=== PATIENT | female | born 1945 | race African-American/Black ===

== ENCOUNTER 2016-07-12 19:37 | Inpatient (IN) | payer MEDICARE, OTHER ==
[~2016-07-12] VITALS: Ht 162.6 cm; Wt 54.3 kg
[~2016-07-12 19:37] MED LIST: ASCO-75 PO; ASPI-231 PO; ATOR40TA52 PO; CARV25TA55 PO; CLO01T PO; DIGO0.1262 PO; DOCU-94 PO; FAMO-12 PO; FERR325T PO; FURO40TA4 PO; INSLISPI; LACT10SO PO; LISI-275 PO; MEGE40SU PO; MULT-424 PO; NITR0.4S29 SL; NOR5T PO; POTA20TA53 PO; [UNRECOGNIZED DRUG - CODE] PO
[2016-07-12 21:07] LABS: Basophils # (auto) 0 uL; Basophils % (auto) 0.5 % (0.0-2.0); DEFINITIVE VIEW TRANSMISSION; Eosinophils # (auto) 0.2 uL; Eosinophils % (auto) 3.8 % (0.0-7.0); Hematocrit 34.8 % (36.0-46.0); Hemoglobin 10.7 g/dL (12.2-16.2); Lymphocytes # (auto) 1.4 uL; Lymphocytes % (auto) 25.9 % (10.0-50.0); Mean Corpuscular Hemoglobin 25.1 pg (28.0-32.0); Mean Corpuscular Hgb Conc. 30.8 g/dL (32.0-36.0); Mean Corpuscular Volume 81.3 fL (80.0-100.0); Mean Platelet Volume 8.1 fL (7.4-10.4); Monocytes # (auto) 0.6 uL; Monocytes % (auto) 11.9 % (0.0-12.0); Neutrophils % (auto) 57.9 % (37.0-80.0); Platelet Count (auto) 235 10^3/uL (140-450); Red Cell Distribution Width 14.1 % (11.6-16.0); White Blood Cell 5.3 10^3/uL (4.4-10.8)
[2016-07-12 21:25] LABS: Albumin 3.8 g/dL (3.4-5.0); BUN/Creatinine Ratio 10.7; Bilirubin, Total 0.5 mg/dL (0.2-1.0); Calcium 9.1 mg/dL (8.5-10.1); Total Protein 8.2 g/dL (6.4-8.2)
[2016-07-12 22:51] LABS: B-Type Natriuretic Peptide 310.98 pg/mL (0-100); Temperature: 22.9 C (20.0-25.0)
[2016-07-13] MEDS ORDERED: IOHEXOL 350 MG/ML 100ML IJ ONE (00:20)
[2016-07-13] MEDS ORDERED: DEXTROSE (50%) 50ML SYRG IV PRN (01:15)
[2016-07-13] MEDS ORDERED: ONDANSETRON HCL 4 MG/2 ML VIAL IV PRN (01:15)
[2016-07-13] MEDS ORDERED: cloNIDine HCL 0.1 MG TAB PO PRN (01:15)
[2016-07-13] MEDS ORDERED: NITROGLYCERIN 0.4 MG SL TAB SL PRN (01:15)
[2016-07-13] MEDS ORDERED: MORPHINE SULF INJ 2 MG/ML SYRINGE 1ML IV PRN (01:15)
[2016-07-13 02:29] LABS: Partial Thromboplastin Time 42.2 sec (22.64-33.71)
[2016-07-13 02:34] LABS: Prothrombin Time 50.5 sec (9.37-12.3)
[2016-07-13 02:38] LABS: INR 4.68 (0.9-1.15)
[2016-07-13] MEDS: ACETAMINOPHEN 325 MG TAB PO PRN (03:06)
[2016-07-13 03:18] VITALS: BP 138/72
[2016-07-13] MEDS: ACCU-CHEK COMFORT CURVE STRIP VI SCH ×3 (05:46→17:18)
[2016-07-13] MEDS: InsuLIN REG 1unit/0.01ml Soln (100units/ml) SC SCH ×3 (05:46→17:27)
[2016-07-13 05:56] VITALS: BP 130/69
[2016-07-13] MEDS: FERROUS SULFATE 325 MG TAB PO SCH ×2 (08:07→17:17)
[2016-07-13 09:00] VITALS: BP 145/69
[2016-07-13] MEDS ORDERED: ASPirin 81 mg TAB PO SCH (10:00)
[2016-07-13] MEDS: POTASSIUM CHL 20 Meq TABLET PO SCH (10:22)
[2016-07-13] MEDS: FAMOTIDINE 20 MG TAB PO SCH ×2 (10:23→22:04)
[2016-07-13] MEDS: DIGOXIN 0.125 MG TAB PO SCH (10:23)
[2016-07-13] MEDS: FUROSEMIDE 40 MG TAB PO SCH (10:24)
[2016-07-13] MEDS: ASCORBIC ACID 500 MG TAB PO SCH (10:25)
[2016-07-13] MEDS: CARVEDILOL 12.5 MG TAB PO SCH ×2 (10:25→22:05)
[2016-07-13] MEDS: LISINOPRIL 5 MG TAB PO SCH (10:25)
[2016-07-13 13:00] VITALS: BP 131/63
[2016-07-13 17:00] VITALS: BP 123/60
[2016-07-13 22:00] VITALS: BP 114/65
[2016-07-14] MEDS: ACCU-CHEK COMFORT CURVE STRIP VI SCH ×4 (00:36→17:45)
[2016-07-14] MEDS: InsuLIN REG 1unit/0.01ml Soln (100units/ml) SC SCH ×4 (00:37→17:46)
[2016-07-14] MEDS: ACETAMINOPHEN 325 MG TAB PO PRN ×2 (04:27→23:49)
[2016-07-14 05:00] VITALS: BP 124/73
[2016-07-14 06:57] LABS: Partial Thromboplastin Time 38.7 sec (22.64-33.71)
[2016-07-14 07:09] LABS: INR 2.95 (0.9-1.15); Prothrombin Time 31.9 sec (9.37-12.3)
[2016-07-14 08:00] VITALS: BP 117/62
[2016-07-14] MEDS: FERROUS SULFATE 325 MG TAB PO SCH ×2 (08:18→17:45)
[2016-07-14 09:00] VITALS: BP 130/71
[2016-07-14] MEDS: FUROSEMIDE 40 MG TAB PO SCH (10:31)
[2016-07-14] MEDS: ASCORBIC ACID 500 MG TAB PO SCH (10:32)
[2016-07-14] MEDS: FAMOTIDINE 20 MG TAB PO SCH ×2 (10:32→22:23)
[2016-07-14] MEDS: CARVEDILOL 12.5 MG TAB PO SCH ×2 (10:33→22:23)
[2016-07-14] MEDS: POTASSIUM CHL 20 Meq TABLET PO SCH (10:34)
[2016-07-14] MEDS: DIGOXIN 0.125 MG TAB PO SCH (10:35)
[2016-07-14] MEDS: LISINOPRIL 5 MG TAB PO SCH (10:35)
[2016-07-14 13:00] VITALS: BP 117/59
[2016-07-14 17:00] VITALS: BP 127/67
[2016-07-14] MEDS ORDERED: WARFARIN SODIUM 1 MG TAB PO ONE (17:00)
[2016-07-14 22:00] VITALS: BP 126/60
[2016-07-15 05:52] VITALS: BP 111/59
[2016-07-15] MEDS: ACCU-CHEK COMFORT CURVE STRIP VI SCH ×4 (05:59→17:46)
[2016-07-15] MEDS: InsuLIN REG 1unit/0.01ml Soln (100units/ml) SC SCH ×4 (05:59→17:46)
[2016-07-15 06:07] LABS: Partial Thromboplastin Time 34.3 sec (22.64-33.71)
[2016-07-15 06:10] LABS: BUN/Creatinine Ratio 16.3; Calcium 8.9 mg/dL (8.5-10.1); Potassium 3.7 mmol/L (3.5-5.1)
[2016-07-15 06:11] LABS: INR 1.93 (0.9-1.15); Prothrombin Time 20.8 sec (9.37-12.3)
[2016-07-15 08:00] VITALS: BP 110/59
[2016-07-15 09:00] VITALS: BP 149/69
[2016-07-15] MEDS: ASCORBIC ACID 500 MG TAB PO SCH (10:04)
[2016-07-15] MEDS: POTASSIUM CHL 20 Meq TABLET PO SCH (10:04)
[2016-07-15] MEDS: FERROUS SULFATE 325 MG TAB PO SCH ×2 (10:04→17:45)
[2016-07-15] MEDS: FAMOTIDINE 20 MG TAB PO SCH ×2 (10:04→22:19)
[2016-07-15] MEDS: LISINOPRIL 5 MG TAB PO SCH (10:06)
[2016-07-15] MEDS: AMIODARONE HCL 200 MG TAB PO SCH ×2 (10:07→22:17)
[2016-07-15] MEDS: CARVEDILOL 12.5 MG TAB PO SCH ×2 (10:07→22:19)
[2016-07-15] MEDS: FUROSEMIDE 40 MG TAB PO SCH (10:07)
[2016-07-15 13:00] VITALS: BP 120/57
[2016-07-15 17:00] VITALS: BP 117/65
[2016-07-15] MEDS ORDERED: WARFARIN SODIUM 2.5 MG TAB PO ONE (17:00)
[2016-07-15 21:03] VITALS: BP 140/69
[2016-07-15] MEDS: HYDROcodone-ACET 5/325MG TAB PO PRN (22:30)
[2016-07-16 05:04] VITALS: BP 113/61
[2016-07-16] MEDS: InsuLIN REG 1unit/0.01ml Soln (100units/ml) SC SCH ×4 (06:00→17:45)
[2016-07-16] MEDS: ACCU-CHEK COMFORT CURVE STRIP VI SCH ×4 (06:15→17:29)
[2016-07-16 07:31] LABS: Partial Thromboplastin Time 29.6 sec (22.64-33.71)
[2016-07-16 07:34] LABS: INR 1.34 (0.9-1.15); Prothrombin Time 14.5 sec (9.37-12.3)
[2016-07-16] MEDS ORDERED: ADENOSINE 49 MG in GIVE UN-DILUTED 0 ML IV STA (07:59)
[2016-07-16 08:00] VITALS: BP 124/70
[2016-07-16] MEDS: FERROUS SULFATE 325 MG TAB PO SCH ×2 (08:00→17:45)
[2016-07-16 08:01] LABS: Albumin 3.2 g/dL (3.4-5.0); Bilirubin, Total 0.8 mg/dL (0.2-1.0); Calcium 8.8 mg/dL (8.5-10.1); Potassium 3.7 mmol/L (3.5-5.1); Total Protein 7.2 g/dL (6.4-8.2)
[2016-07-16 09:00] VITALS: BP 124/70
[2016-07-16] MEDS ORDERED: AMINOPHYLLINE 250 MG/10 ML VL IV ONE (09:37)
[2016-07-16] MEDS: POTASSIUM CHL 20 Meq TABLET PO SCH (11:20)
[2016-07-16] MEDS: AMIODARONE HCL 200 MG TAB PO SCH ×2 (11:20→22:18)
[2016-07-16] MEDS: FUROSEMIDE 40 MG TAB PO SCH (11:21)
[2016-07-16] MEDS: DIGOXIN 0.125 MG TAB PO SCH (11:21)
[2016-07-16] MEDS: FAMOTIDINE 20 MG TAB PO SCH ×2 (11:22→22:19)
[2016-07-16] MEDS: CARVEDILOL 12.5 MG TAB PO SCH ×2 (11:22→22:00)
[2016-07-16] MEDS: ASCORBIC ACID 500 MG TAB PO SCH (11:22)
[2016-07-16] MEDS: LISINOPRIL 5 MG TAB PO SCH (11:23)
[2016-07-16 13:00] VITALS: BP 144/71
[2016-07-16 17:00] VITALS: BP 105/53
[2016-07-16] MEDS ORDERED: WARFARIN SODIUM 5 MG TAB PO ONE (17:00)
[2016-07-16 22:00] VITALS: BP 97/53
[2016-07-16 22:06] LABS: Basophils # (auto) 0 uL; Basophils % (auto) 0.3 % (0.0-2.0); DEFINITIVE VIEW TRANSMISSION; Eosinophils # (auto) 0.2 uL; Eosinophils % (auto) 2.8 % (0.0-7.0); Hematocrit 35.4 % (36.0-46.0); Hemoglobin 10.9 g/dL (12.2-16.2); Lymphocytes # (auto) 1.4 uL; Lymphocytes % (auto) 16.9 % (10.0-50.0); Mean Corpuscular Hemoglobin 25.1 pg (28.0-32.0); Mean Corpuscular Hgb Conc. 30.7 g/dL (32.0-36.0); Mean Corpuscular Volume 81.7 fL (80.0-100.0); Monocytes # (auto) 0.9 uL; Monocytes % (auto) 10.8 % (0.0-12.0); Neutrophils # (auto) 5.6 uL; Neutrophils % (auto) 69.2 % (37.0-80.0); Platelet Count (auto) 251 10^3/uL (140-450); Red Cell Distribution Width 14.3 % (11.6-16.0); White Blood Cell 8.1 10^3/uL (4.4-10.8)
[2016-07-16] MEDS ORDERED: HEPARIN DRIP/D5W 100UNITS/ML 250 ML IV SCH (22:15)
[2016-07-17 05:49] VITALS: BP 111/64
[2016-07-17] MEDS: InsuLIN REG 1unit/0.01ml Soln (100units/ml) SC SCH ×4 (06:00→17:56)
[2016-07-17] MEDS: ACCU-CHEK COMFORT CURVE STRIP VI SCH ×4 (06:17→17:56)
[2016-07-17 07:30] LABS: Partial Thromboplastin Time 42.2 sec (22.64-33.71)
[2016-07-17 07:40] LABS: INR 1.21 (0.9-1.15); Prothrombin Time 13.1 sec (9.37-12.3)
[2016-07-17] MEDS: FERROUS SULFATE 325 MG TAB PO SCH ×2 (08:00→18:00)
[2016-07-17] MEDS ORDERED: LIDOCAINE 2%HCL (LOCAL ANESTH.) INJ 20ML MDV ONE (08:36)
[2016-07-17] MEDS ORDERED: IOHEXOL 350 MG/ML 100ML IJ ONE (08:36)
[2016-07-17 08:44] VITALS: BP 120/71
[2016-07-17] MEDS ORDERED: MIDAZOLAM HCL 1MG/1ML-2 ML VIAL ONE (09:50)
[2016-07-17] MEDS ORDERED: fentaNYL CITRATE 100 MCG/2 ML VL ONE (09:50)
[2016-07-17] MEDS ORDERED: ANGIOMAX 250 MG VIAL IV ONE (09:51)
[2016-07-17] MEDS ORDERED: SODIUM CHL 0.9% 0 ML ONE (09:51)
[2016-07-17] MEDS: CARVEDILOL 12.5 MG TAB PO SCH ×2 (10:00→22:27)
[2016-07-17] MEDS: LISINOPRIL 5 MG TAB PO SCH (10:00)
[2016-07-17] MEDS: ASCORBIC ACID 500 MG TAB PO SCH (10:00)
[2016-07-17] MEDS: FAMOTIDINE 20 MG TAB PO SCH ×2 (10:00→22:27)
[2016-07-17] MEDS: FUROSEMIDE 40 MG TAB PO SCH (10:00)
[2016-07-17] MEDS: AMIODARONE HCL 200 MG TAB PO SCH ×2 (10:00→22:28)
[2016-07-17] MEDS: POTASSIUM CHL 20 Meq TABLET PO SCH (10:00)
[2016-07-17] MEDS ORDERED: HEPARIN DRIP/D5W 100UNITS/ML 250 ML IV SCH (12:02)
[2016-07-17] MEDS: HEPARIN DRIP/D5W 100UNITS/ML 250 ML IV SCH ×3 (12:50→18:41)
[2016-07-17 13:00] VITALS: BP 136/70
[2016-07-17 13:05] LABS: Partial Thromboplastin Time 28.8 sec (22.64-33.71)
[2016-07-17 13:11] LABS: INR 1.16 (0.9-1.15); Prothrombin Time 12.5 sec (9.37-12.3)
[2016-07-17 17:00] VITALS: BP 123/70
[2016-07-17] MEDS ORDERED: WARFARIN SODIUM 2.5 MG TAB PO ONE (17:00)
[2016-07-17 18:33] LABS: INR 1.13 (0.9-1.15); Partial Thromboplastin Time 41.1 sec (22.64-33.71); Prothrombin Time 12.2 sec (9.37-12.3)
[2016-07-17 21:00] VITALS: BP 111/64
[2016-07-17] MEDS: HYDROcodone-ACET 5/325MG TAB PO PRN (22:37)
[2016-07-18] MEDS: ACCU-CHEK COMFORT CURVE STRIP VI SCH ×4 (00:27→17:31)
[2016-07-18 03:52] LABS: INR 1.15 (0.9-1.15); Partial Thromboplastin Time 61.3 sec (22.64-33.71)
[2016-07-18 04:50] LABS: Prothrombin Time 12.4 sec (9.37-12.3)
[2016-07-18 05:35] VITALS: BP 107/54
[2016-07-18] MEDS: InsuLIN REG 1unit/0.01ml Soln (100units/ml) SC SCH ×4 (06:00→17:31)
[2016-07-18] MEDS ORDERED: HEPARIN DRIP/D5W 100UNITS/ML 250 ML IV SCH ×3 (06:30→13:15)
[2016-07-18 06:44] LABS: Basophils # (auto) 0 uL; Basophils % (auto) 0.3 % (0.0-2.0); DEFINITIVE VIEW TRANSMISSION; Eosinophils # (auto) 0.2 uL; Eosinophils % (auto) 2.8 % (0.0-7.0); Hemoglobin 10.1 g/dL (12.2-16.2); Lymphocytes # (auto) 1.5 uL; Lymphocytes % (auto) 23.2 % (10.0-50.0); Mean Corpuscular Hemoglobin 25.6 pg (28.0-32.0); Mean Corpuscular Hgb Conc. 31.4 g/dL (32.0-36.0); Mean Corpuscular Volume 81.5 fL (80.0-100.0); Mean Platelet Volume 8.8 fL (7.4-10.4); Monocytes # (auto) 0.6 uL; Monocytes % (auto) 9.9 % (0.0-12.0); Neutrophils # (auto) 4.2 uL; Neutrophils % (auto) 63.8 % (37.0-80.0); Platelet Count (auto) 191 10^3/uL (140-450); Red Cell Distribution Width 14.3 % (11.6-16.0); White Blood Cell 6.6 10^3/uL (4.4-10.8)
[2016-07-18 06:54] LABS: INR 1.14 (0.9-1.15); Prothrombin Time 12.3 sec (9.37-12.3)
[2016-07-18 07:01] LABS: Partial Thromboplastin Time 75.8 sec (22.64-33.71)
[2016-07-18] MEDS: ASCORBIC ACID 500 MG TAB PO SCH (08:58)
[2016-07-18] MEDS: FERROUS SULFATE 325 MG TAB PO SCH ×2 (08:58→17:31)
[2016-07-18] MEDS: AMIODARONE HCL 200 MG TAB PO SCH ×2 (08:58→22:22)
[2016-07-18] MEDS: FAMOTIDINE 20 MG TAB PO SCH ×2 (08:58→22:22)
[2016-07-18] MEDS: FUROSEMIDE 40 MG TAB PO SCH (08:59)
[2016-07-18] MEDS: CARVEDILOL 12.5 MG TAB PO SCH ×2 (08:59→22:22)
[2016-07-18] MEDS: DIGOXIN 0.125 MG TAB PO SCH (08:59)
[2016-07-18] MEDS: POTASSIUM CHL 20 Meq TABLET PO SCH (08:59)
[2016-07-18 09:00] VITALS: BP 101/54
[2016-07-18] MEDS: LISINOPRIL 5 MG TAB PO SCH (09:00)
[2016-07-18] MEDS ORDERED: WARF2TAB49 (09:09)
[2016-07-18] MEDS ORDERED: WARF5TAB71 (09:09)
[2016-07-18 12:23] LABS: INR 1.06 (0.9-1.15); Prothrombin Time 11.5 sec (9.37-12.3)
[2016-07-18 12:52] LABS: Partial Thromboplastin Time 69.3 sec (22.64-33.71)
[2016-07-18 13:00] VITALS: BP 130/69
[2016-07-18 17:00] VITALS: BP 114/60
[2016-07-18] MEDS ORDERED: WARFARIN SODIUM 2.5 MG TAB PO ONE (17:00)
[2016-07-18 20:00] VITALS: BP 125/66
[2016-07-18 22:00] VITALS: BP 125/66
[2016-07-19] VITALS (7 sets, daily range): BP systolic 101–138; BP diastolic 56–72
[2016-07-19] MEDS: InsuLIN REG 1unit/0.01ml Soln (100units/ml) SC SCH ×4 (06:00→18:00)
[2016-07-19] MEDS: ACCU-CHEK COMFORT CURVE STRIP VI SCH ×4 (06:01→18:06)
[2016-07-19 06:26] LABS: Basophils # (auto) 0 uL; Basophils % (auto) 0.4 % (0.0-2.0); DEFINITIVE VIEW TRANSMISSION; Eosinophils # (auto) 0.2 uL; Eosinophils % (auto) 2.7 % (0.0-7.0); Hematocrit 33.4 % (36.0-46.0); Hemoglobin 10.4 g/dL (12.2-16.2); Lymphocytes # (auto) 1.3 uL; Lymphocytes % (auto) 19.6 % (10.0-50.0); Mean Corpuscular Hemoglobin 25.2 pg (28.0-32.0); Mean Corpuscular Hgb Conc. 31.1 g/dL (32.0-36.0); Mean Corpuscular Volume 80.8 fL (80.0-100.0); Mean Platelet Volume 8.3 fL (7.4-10.4); Monocytes # (auto) 0.7 uL; Monocytes % (auto) 11.4 % (0.0-12.0); Neutrophils # (auto) 4.3 uL; Neutrophils % (auto) 65.9 % (37.0-80.0); Platelet Count (auto) 195 10^3/uL (140-450); Red Cell Distribution Width 14.8 % (11.6-16.0); White Blood Cell 6.6 10^3/uL (4.4-10.8)
[2016-07-19 06:43] LABS: INR 1.09 (0.9-1.15); Prothrombin Time 11.8 sec (9.37-12.3)
[2016-07-19 06:51] LABS: Partial Thromboplastin Time 86.3 sec (22.64-33.71)
[2016-07-19] MEDS ORDERED: HEPARIN DRIP/D5W 100UNITS/ML 250 ML IV SCH ×2 (07:30→21:15)
[2016-07-19] MEDS ORDERED: WARFARIN SODIUM 2.5 MG TAB PO ONE (08:15)
[2016-07-19] MEDS: FERROUS SULFATE 325 MG TAB PO SCH ×2 (09:04→18:06)
[2016-07-19] MEDS ORDERED: WARFARIN SODIUM 10 MG TAB PO ONE (10:10)
[2016-07-19] MEDS: CARVEDILOL 12.5 MG TAB PO SCH ×2 (10:59→21:51)
[2016-07-19] MEDS: POTASSIUM CHL 20 Meq TABLET PO SCH (11:00)
[2016-07-19] MEDS: AMIODARONE HCL 200 MG TAB PO SCH ×2 (11:00→21:52)
[2016-07-19] MEDS: FAMOTIDINE 20 MG TAB PO SCH ×2 (11:00→21:52)
[2016-07-19] MEDS: LISINOPRIL 5 MG TAB PO SCH (11:00)
[2016-07-19] MEDS: ASCORBIC ACID 500 MG TAB PO SCH (11:00)
[2016-07-19] MEDS: FUROSEMIDE 40 MG TAB PO SCH (11:00)
[2016-07-19 14:20] LABS: INR 1.03 (0.9-1.15); Partial Thromboplastin Time 54.8 sec (22.64-33.71); Prothrombin Time 11.1 sec (9.37-12.3)
[2016-07-19] MEDS ORDERED: WARFARIN SODIUM 5 MG TAB PO ONE (17:00)
[2016-07-20] MEDS: InsuLIN REG 1unit/0.01ml Soln (100units/ml) SC SCH ×4 (00:10→17:04)
[2016-07-20] MEDS: ACCU-CHEK COMFORT CURVE STRIP VI SCH ×4 (00:10→17:00)
[2016-07-20 05:30] VITALS: BP 113/62
[2016-07-20 08:00] VITALS: BP 120/65
[2016-07-20] MEDS: FERROUS SULFATE 325 MG TAB PO SCH ×2 (08:23→17:00)
[2016-07-20 09:00] VITALS: BP 120/65
[2016-07-20 09:21] LABS: Basophils # (auto) 0 uL; Basophils % (auto) 0.3 % (0.0-2.0); DEFINITIVE VIEW TRANSMISSION; Eosinophils # (auto) 0.1 uL; Eosinophils % (auto) 2.5 % (0.0-7.0); Hematocrit 34.2 % (36.0-46.0); Hemoglobin 10.6 g/dL (12.2-16.2); Lymphocytes # (auto) 1.4 uL; Lymphocytes % (auto) 22.6 % (10.0-50.0); Mean Corpuscular Hemoglobin 25.4 pg (28.0-32.0); Mean Corpuscular Hgb Conc. 30.9 g/dL (32.0-36.0); Mean Corpuscular Volume 82.1 fL (80.0-100.0); Mean Platelet Volume 8.2 fL (7.4-10.4); Monocytes # (auto) 0.5 uL; Monocytes % (auto) 7.7 % (0.0-12.0); Neutrophils # (auto) 4.1 uL; Neutrophils % (auto) 66.9 % (37.0-80.0); Platelet Count (auto) 206 10^3/uL (140-450); Red Cell Distribution Width 14.5 % (11.6-16.0); White Blood Cell 6.1 10^3/uL (4.4-10.8)
[2016-07-20 10:15] LABS: INR 1.16 (0.9-1.15); Prothrombin Time 12.5 sec (9.37-12.3)
[2016-07-20 10:18] LABS: Partial Thromboplastin Time 82.8 sec (22.64-33.71)
[2016-07-20] MEDS: POTASSIUM CHL 20 Meq TABLET PO SCH (10:20)
[2016-07-20] MEDS: DIGOXIN 0.125 MG TAB PO SCH (10:20)
[2016-07-20] MEDS: FUROSEMIDE 40 MG TAB PO SCH (10:21)
[2016-07-20] MEDS: CARVEDILOL 12.5 MG TAB PO SCH ×2 (10:21→21:46)
[2016-07-20] MEDS: AMIODARONE HCL 200 MG TAB PO SCH ×2 (10:22→21:45)
[2016-07-20] MEDS: LISINOPRIL 5 MG TAB PO SCH (10:22)
[2016-07-20] MEDS: FAMOTIDINE 20 MG TAB PO SCH ×2 (10:22→21:47)
[2016-07-20] MEDS: ASCORBIC ACID 500 MG TAB PO SCH (10:22)
[2016-07-20] MEDS: HEPARIN DRIP/D5W 100UNITS/ML 250 ML IV SCH (12:13)
[2016-07-20 13:00] VITALS: BP 112/62
[2016-07-20 16:32] LABS: Partial Thromboplastin Time 58.9 sec (22.64-33.71)
[2016-07-20 16:35] LABS: INR 1.24 (0.9-1.15); Prothrombin Time 13.4 sec (9.37-12.3)
[2016-07-20 17:00] VITALS: BP 93/53
[2016-07-20] MEDS ORDERED: WARFARIN SODIUM 10 MG TAB PO ONE (17:00)
[2016-07-20] MEDS ORDERED: WARFARIN SODIUM 5 MG TAB PO ONE (17:00)
[2016-07-20 21:13] LABS: Partial Thromboplastin Time 57.8 sec (22.64-33.71)
[2016-07-20 21:16] LABS: INR 1.33 (0.9-1.15); Prothrombin Time 14.4 sec (9.37-12.3)
[2016-07-20 21:39] VITALS: BP 123/62
[2016-07-21] MEDS: ACCU-CHEK COMFORT CURVE STRIP VI SCH ×4 (00:04→17:40)
[2016-07-21] MEDS: InsuLIN REG 1unit/0.01ml Soln (100units/ml) SC SCH ×4 (00:05→17:40)
[2016-07-21 04:38] VITALS: BP 114/57
[2016-07-21 06:01] LABS: Basophils # (auto) 0 uL; Basophils % (auto) 0.4 % (0.0-2.0); DEFINITIVE VIEW TRANSMISSION; Eosinophils # (auto) 0.2 uL; Hematocrit 33.1 % (36.0-46.0); Hemoglobin 10.3 g/dL (12.2-16.2); Lymphocytes # (auto) 1.2 uL; Lymphocytes % (auto) 18.1 % (10.0-50.0); Mean Corpuscular Hemoglobin 25.4 pg (28.0-32.0); Mean Corpuscular Hgb Conc. 31.1 g/dL (32.0-36.0); Mean Corpuscular Volume 81.8 fL (80.0-100.0); Mean Platelet Volume 8.5 fL (7.4-10.4); Monocytes # (auto) 0.7 uL; Monocytes % (auto) 10.9 % (0.0-12.0); Neutrophils # (auto) 4.5 uL; Neutrophils % (auto) 67.6 % (37.0-80.0); Platelet Count (auto) 213 10^3/uL (140-450); Red Cell Distribution Width 14.4 % (11.6-16.0); White Blood Cell 6.7 10^3/uL (4.4-10.8)
[2016-07-21 06:22] LABS: INR 1.53 (0.9-1.15); Prothrombin Time 16.5 sec (9.37-12.3)
[2016-07-21 08:13] VITALS: BP 111/64
[2016-07-21] MEDS: FERROUS SULFATE 325 MG TAB PO SCH ×2 (08:28→17:33)
[2016-07-21] MEDS: LISINOPRIL 5 MG TAB PO SCH (10:27)
[2016-07-21] MEDS: ASCORBIC ACID 500 MG TAB PO SCH (10:27)
[2016-07-21] MEDS: AMIODARONE HCL 200 MG TAB PO SCH ×2 (10:27→22:19)
[2016-07-21] MEDS: FAMOTIDINE 20 MG TAB PO SCH ×2 (10:27→22:20)
[2016-07-21] MEDS: POTASSIUM CHL 20 Meq TABLET PO SCH (10:28)
[2016-07-21] MEDS: FUROSEMIDE 40 MG TAB PO SCH (10:28)
[2016-07-21] MEDS: CARVEDILOL 12.5 MG TAB PO SCH ×2 (10:35→22:19)
[2016-07-21] MEDS: HEPARIN DRIP/D5W 100UNITS/ML 250 ML IV SCH (11:15)
[2016-07-21 12:23] VITALS: BP 122/66
[2016-07-21 16:56] VITALS: BP 100/61
[2016-07-21] MEDS ORDERED: WARFARIN SODIUM 2.5 MG TAB PO ONE (17:00)
[2016-07-21 21:48] VITALS: BP 129/65
[2016-07-22] MEDS: ACCU-CHEK COMFORT CURVE STRIP VI SCH ×3 (00:33→11:21)
[2016-07-22] MEDS: InsuLIN REG 1unit/0.01ml Soln (100units/ml) SC SCH ×3 (00:33→12:34)
[2016-07-22] MEDS: HEPARIN DRIP/D5W 100UNITS/ML 250 ML IV SCH (03:38)
[2016-07-22 05:00] VITALS: BP 125/65
[2016-07-22 06:47] LABS: INR 2.71 (0.9-1.15); Prothrombin Time 29.3 sec (9.37-12.3)
[2016-07-22 06:49] LABS: Partial Thromboplastin Time 78.6 sec (22.64-33.71)
[2016-07-22 08:00] VITALS: BP 114/49
[2016-07-22] MEDS: FERROUS SULFATE 325 MG TAB PO SCH (08:00)
[2016-07-22 09:00] VITALS: BP 114/49
[2016-07-22] MEDS: LISINOPRIL 5 MG TAB PO SCH (10:00)
[2016-07-22 10:34] VITALS: BP 126/62
[2016-07-22] MEDS: ASCORBIC ACID 500 MG TAB PO SCH (11:04)
[2016-07-22] MEDS: AMIODARONE HCL 200 MG TAB PO SCH (11:04)
[2016-07-22] MEDS: POTASSIUM CHL 20 Meq TABLET PO SCH (11:04)
[2016-07-22] MEDS: FAMOTIDINE 20 MG TAB PO SCH (11:06)
[2016-07-22] MEDS: CARVEDILOL 12.5 MG TAB PO SCH ×2 (11:07→12:34)
[2016-07-22] MEDS: FUROSEMIDE 40 MG TAB PO SCH (11:07)
[2016-07-22] MEDS: DIGOXIN 0.125 MG TAB PO SCH (11:09)
== END 2016-07-22 12:40 | disposition home or self-care (01) | DRG 286 ==
LOC: ER 19:43 → TELE-CENTR 19:44
PROVIDERS: ADMIT Nurse Practitioner; ATTEND Internal Medicine
PROC: 4A023N7 Measurement of Cardiac Sampling and Pressure, Left Heart, Percutaneous Approach (ICD-10-PCS; principal; 2016-07-17)
PROC: B2111ZZ Fluoroscopy of Multiple Coronary Arteries using Low Osmolar Contrast (ICD-10-PCS; 2016-07-17)
PROC: B2131ZZ Fluoroscopy of Multiple Coronary Artery Bypass Grafts using Low Osmolar Contrast (ICD-10-PCS; 2016-07-17)
PROC: B2151ZZ Fluoroscopy of Left Heart using Low Osmolar Contrast (ICD-10-PCS; 2016-07-17)
PROC: 4B02XTZ Measurement of Cardiac Defibrillator, External Approach (ICD-10-PCS; 2016-07-17)
PROC: B3121ZZ Fluoroscopy of Left Subclavian Artery using Low Osmolar Contrast (ICD-10-PCS; 2016-07-17)
PROC: B41F1ZZ Fluoroscopy of Right Lower Extremity Arteries using Low Osmolar Contrast (ICD-10-PCS; 2016-07-17)
DX: I47.2 Ventricular tachycardia (principal); I50.43 Acute on chronic combined systolic (congestive) and diastolic (congestive) heart failure; I13.0 Hypertensive heart and chronic kidney disease with heart failure and stage 1 through stage 4 chronic kidney disease, or unspecified chronic kidney disease; E11.22 Type 2 diabetes mellitus with diabetic chronic kidney disease; N18.9 Chronic kidney disease, unspecified; I25.10 Atherosclerotic heart disease of native coronary artery without angina pectoris; J44.9 Chronic obstructive pulmonary disease, unspecified; I25.5 Ischemic cardiomyopathy; Z95.810 Presence of automatic (implantable) cardiac defibrillator; Z95.2 Presence of prosthetic heart valve; Z95.1 Presence of aortocoronary bypass graft; Z79.84 Long term (current) use of oral hypoglycemic drugs
CPT/HCPCS: 36415; 71010; 71275; 78452; 80048; 80053; 80162; 82962; 83036; 83735; 83880; 84484; 85025; 85379; 85610; 85730; 93005; 93017; 93292; 93306; 93459; 99152; J0153; J1815; J2250

== ENCOUNTER → 2016-08-09 | Outpatient (CLI) | payer MEDICARE, OTHER, BC ==
[~2016-08-09] MED LIST changes: +WARF2TAB49; +WARF5TAB71
[2016-08-09 11:54] LABS: Basophils # (auto) 0 uL; Basophils % (auto) 0.5 % (0.0-2.0); DEFINITIVE VIEW TRANSMISSION; Eosinophils # (auto) 0.2 uL; Eosinophils % (auto) 3.6 % (0.0-7.0); Hematocrit 37.5 % (36.0-46.0); Hemoglobin 11.8 g/dL (12.2-16.2); Lymphocytes # (auto) 0.8 uL; Lymphocytes % (auto) 16.2 % (10.0-50.0); Mean Corpuscular Hemoglobin 25.7 pg (28.0-32.0); Mean Corpuscular Hgb Conc. 31.5 g/dL (32.0-36.0); Mean Corpuscular Volume 81.6 fL (80.0-100.0); Monocytes # (auto) 0.3 uL; Monocytes % (auto) 5.9 % (0.0-12.0); Neutrophils # (auto) 3.8 uL; Neutrophils % (auto) 73.8 % (37.0-80.0); Platelet Count (auto) 195 10^3/uL (140-450); Red Cell Distribution Width 15.1 % (11.6-16.0); White Blood Cell 5.1 10^3/uL (4.4-10.8)
[2016-08-09 12:46] LABS: Albumin 4.4 g/dL (3.4-5.0); BUN/Creatinine Ratio 13.7; Bilirubin, Total 0.8 mg/dL (0.2-1.0); Calcium 9.6 mg/dL (8.5-10.1); Potassium 4.7 mmol/L (3.5-5.1); Total Protein 9.1 g/dL (6.4-8.2)
[2016-08-09 13:12] LABS: Urine Bilirubin Negative (Negative); Urine Blood Negative /uL (Negative); Urine Color Yellow (Yellow); Urine Glucose Normal (Normal); Urine Ketone Negative (Negative); Urine Mucus FEW (None Seen); Urine Nitrite Negative (Negative); Urine RBC 1 /hpf (0 - 4); Urine Squamous Epithelial Cell FEW /hpf (<5); Urine Urobilinogen Normal (Negative); Urine pH 5.5 (5.0-8.0)
== END | disposition home or self-care (01) ==
LOC: LAB 09:19
PROVIDERS: ATTEND Internal Medicine
DX: E55.9 Vitamin D deficiency, unspecified (principal); E11.9 Type 2 diabetes mellitus without complications; I10 Essential (primary) hypertension; Z00.00 Encounter for general adult medical examination without abnormal findings
CPT/HCPCS: 36415; 80053; 80061; 81001; 82043; 82306; 83036; 84443; 85025

== ENCOUNTER 2020-09-03 13:13 | Inpatient (IN) | payer BC, MEDICARE, OTHER ==
[~2020-09-03] VITALS: Ht 162.6 cm; Wt 60.4 kg
[~2020-09-03 13:13] MED LIST changes: -ASPI-231 PO; +ASPI1TAB20 PO; +FERR-20 PO; -FERR325T PO; +HYDR-4833 PO; -LACT10SO PO; +LACT10SO3 PO; -NOR5T PO; +POTA-220 PO; -POTA20TA53 PO
[2020-09-03 16:51] LABS: Basophils # (auto) 0 10 ^3/uL (0-0.2); Eosinophils # (auto) 0.1 10 ^3/uL (0-0.8); Neutrophils # (auto) 3.7 10 ^3/uL (1.6-8.6); Nucleated Red Blood Cells % 0.1 %; White Blood Cell 5.5 10^3/uL (4.4-10.8)
[2020-09-03 16:53] LABS: Basophils % (auto) 0.5 % (0.0-2.0); Eosinophils % (auto) 1.9 % (0.0-7.0); Hematocrit 36.6 % (36.0-46.0); Hemoglobin 11.8 g/dL (12.2-16.2); Lymphocytes % (auto) 18.6 % (10.0-50.0); Mean Corpuscular Hemoglobin 26.2 pg (28.0-32.0); Mean Corpuscular Hgb Conc. 32.3 g/dL (32.0-36.0); Mean Corpuscular Volume 81.4 fL (80.0-100.0); Monocytes # (auto) 0.7 10 ^3/uL (0-1.3); Monocytes % (auto) 12.6 % (0.0-12.0); Neutrophils % (auto) 66.4 % (37.0-80.0); Red Cell Distribution Width 14.9 % (11.8-14.3)
[2020-09-03 17:26] LABS: Albumin 3.9 g/dL (3.4-5.0); Calcium 9.1 mg/dL (8.5-10.1)
[2020-09-03 17:28] LABS: BUN/Creatinine Ratio 16.8
[2020-09-03 17:33] LABS: Bilirubin, Total 1.1 mg/dL (0.2-1.0); Total Protein 7.9 g/dL (6.4-8.2)
[2020-09-03] MEDS ORDERED: ASPirin 81 mg TAB PO ONE (20:00)
[2020-09-03 21:40] LABS: INR 2.36 (0.9-1.15); Partial Thromboplastin Time 35.1 sec (23.0-31.2)
[2020-09-03] MEDS ORDERED: ONDANSETRON HCL 4 MG/2 ML VIAL IV PRN (22:30)
[2020-09-03] MEDS ORDERED: HYDROcodone-ACET 5/325MG TAB PO PRN (22:30)
[2020-09-03] MEDS ORDERED: MORPHINE SULFATE INJECTION 2 MG/ML SYRG IV PRN (22:30)
[2020-09-03] MEDS ORDERED: DEXTROSE (50%) 50ML SYRG IV PRN (22:30)
[2020-09-03] MEDS ORDERED: DOCUSATE SOD 100 MG CAP PO PRN (22:30)
[2020-09-03] MEDS ORDERED: ACETAMINOPHEN 325 MG TAB PO PRN (22:30)
[2020-09-03] MEDS ORDERED: NITROGLYCERIN 0.4 MG SL TAB SL PRN (22:30)
[2020-09-03 23:28] LABS: Magnesium 2.2 mg/dL (1.6-2.6)
[2020-09-03 23:48] VITALS: BP 128/77
[2020-09-04 05:00] VITALS: BP 114/71
[2020-09-04] MEDS: SODIUM CHLOR 0.9% PF (SALINE LOCK) 10ML VIAL/SYR IV SCH ×3 (06:00→22:16)
[2020-09-04 06:04] LABS: Basophils # (auto) 0 10 ^3/uL (0-0.2); Eosinophils # (auto) 0.1 10 ^3/uL (0-0.8); Hemoglobin 11.4 g/dL (12.2-16.2); Lymphocytes # (auto) 0.9 10 ^3/uL (0.4-5.4); Monocytes # (auto) 0.6 10 ^3/uL (0-1.3); Neutrophils # (auto) 2.9 10 ^3/uL (1.6-8.6); Nucleated Red Blood Cells % 0.2 %
[2020-09-04 06:06] LABS: Basophils % (auto) 0.4 % (0.0-2.0); Eosinophils % (auto) 2.2 % (0.0-7.0); Hematocrit 35.7 % (36.0-46.0); Lymphocytes % (auto) 20.2 % (10.0-50.0); Mean Corpuscular Volume 81.3 fL (80.0-100.0); Monocytes % (auto) 13.2 % (0.0-12.0); Red Blood Cells 4.39 10^6/uL (4.0-5.20); White Blood Cell 4.6 10^3/uL (4.4-10.8)
[2020-09-04 06:17] LABS: Albumin 3.5 g/dL (3.4-5.0); Calcium 8.6 mg/dL (8.5-10.1); Potassium 3.7 mmol/L (3.5-5.1)
[2020-09-04 06:25] LABS: BUN/Creatinine Ratio 20.6; Bilirubin, Total 0.9 mg/dL (0.2-1.0); Total Protein 7.1 g/dL (6.4-8.2)
[2020-09-04] MEDS: ACCU-CHEK COMFORT CURVE STRIP VI SCH ×4 (07:00→22:15)
[2020-09-04] MEDS: InsuLIN REG 1unit/0.01ml Soln (100units/ml) SC SCH ×4 (07:00→22:14)
[2020-09-04 08:35] VITALS: BP 115/64
[2020-09-04] MEDS ORDERED: ENOXAPARIN SOD 30 MG/0.3 ML SYRINGE SC SCH (10:00)
[2020-09-04] MEDS ORDERED: MULTIPLE VITAMIN TAB PO SCH (10:00)
[2020-09-04] MEDS ORDERED: ASCORBIC ACID 500 MG TAB PO SCH (10:00)
[2020-09-04] MEDS ORDERED: FAMOTIDINE 20 MG TAB PO SCH (10:00)
[2020-09-04] MEDS ORDERED: ASPirin 81 mg TAB PO SCH (10:00)
[2020-09-04] MEDS: ZINC SULFATE 220mg CAP or TAB PO SCH (10:19)
[2020-09-04] MEDS ORDERED: OPTISON 3ml Vial for INJ IV ONE (11:53)
[2020-09-04 12:14] VITALS: BP 120/80
[2020-09-04] MEDS ORDERED: PANT1INJ3 PO (15:59)
[2020-09-04] MEDS ORDERED: SACU1TAB PO (15:59)
[2020-09-04] MEDS ORDERED: SITA50TA PO (15:59)
[2020-09-04] MEDS ORDERED: WARF5TAB71 PO (15:59)
[2020-09-04 17:00] VITALS: BP 126/69
[2020-09-04 17:01] LABS: INR 2.11 (0.9-1.15)
[2020-09-04] MEDS: FERROUS SULFATE 325mg EC TAB PO SCH (17:50)
[2020-09-04] MEDS: Glucerna Carbsteady SHAKE Vanilla 8oz PO SCH (17:51)
[2020-09-04] MEDS ORDERED: WARFARIN SODIUM 1 MG TAB PO ONE (18:00)
[2020-09-04] MEDS ORDERED: AMIODARONE 450mg/250ml AE 250 ML IV SCH (19:00)
[2020-09-04 22:00] VITALS: BP 117/67
[2020-09-04] MEDS ORDERED: NUTREN 1.0 250 ML BTL PO SCH (22:00)
[2020-09-04] MEDS ORDERED: ATORVASTATIN 20 MG TAB PO SCH (22:00)
[2020-09-04] MEDS: SACUBITRIL-VALSARTAN 24mg/26mg TAB PO SCH (22:16)
[2020-09-04] MEDS: DOCUSATE SOD 100 MG CAP PO SCH (22:16)
[2020-09-04] MEDS: CARVEDILOL 12.5 MG TAB PO SCH (22:17)
[2020-09-05 05:06] VITALS: BP 118/69
[2020-09-05] MEDS: SODIUM CHLOR 0.9% PF (SALINE LOCK) 10ML VIAL/SYR IV SCH ×2 (06:02→14:40)
[2020-09-05] MEDS: ACCU-CHEK COMFORT CURVE STRIP VI SCH ×2 (06:04→12:06)
[2020-09-05] MEDS: InsuLIN REG 1unit/0.01ml Soln (100units/ml) SC SCH ×2 (06:04→11:30)
[2020-09-05 06:09] LABS: Basophils # (auto) 0 10 ^3/uL (0-0.2); Eosinophils # (auto) 0.1 10 ^3/uL (0-0.8); Eosinophils % (auto) 1.4 % (0.0-7.0); Lymphocytes # (auto) 0.8 10 ^3/uL (0.4-5.4); Monocytes # (auto) 0.7 10 ^3/uL (0-1.3); Neutrophils # (auto) 3.5 10 ^3/uL (1.6-8.6); Nucleated Red Blood Cells % 0.2 %
[2020-09-05 06:11] LABS: Basophils % (auto) 0.4 % (0.0-2.0); Hematocrit 32.8 % (36.0-46.0); Hemoglobin 10.7 g/dL (12.2-16.2); Lymphocytes % (auto) 16.3 % (10.0-50.0); Mean Corpuscular Hemoglobin 26.3 pg (28.0-32.0); Mean Corpuscular Hgb Conc. 32.7 g/dL (32.0-36.0); Mean Corpuscular Volume 80.6 fL (80.0-100.0); Monocytes % (auto) 13.1 % (0.0-12.0); Neutrophils % (auto) 68.8 % (37.0-80.0); Red Blood Cells 4.07 10^6/uL (4.0-5.20); White Blood Cell 5.1 10^3/uL (4.4-10.8)
[2020-09-05 06:20] LABS: INR 2.54 (0.9-1.15)
[2020-09-05 06:34] LABS: Albumin 3.3 g/dL (3.4-5.0); Calcium 8.6 mg/dL (8.5-10.1); Magnesium 2.4 mg/dL (1.6-2.6); Potassium 3.8 mmol/L (3.5-5.1)
[2020-09-05 06:40] LABS: BUN/Creatinine Ratio 24.1; Bilirubin, Total 0.8 mg/dL (0.2-1.0); Total Protein 6.6 g/dL (6.4-8.2)
[2020-09-05] MEDS ORDERED: AMIODARONE 450mg/250ml AE 250 ML IV SCH ×3 (07:21→10:00)
[2020-09-05] MEDS: Glucerna Carbsteady SHAKE Vanilla 8oz PO SCH (07:34)
[2020-09-05] MEDS: FERROUS SULFATE 325mg EC TAB PO SCH (07:34)
[2020-09-05 09:00] VITALS: BP 120/76
[2020-09-05] MEDS ORDERED: POTASSIUM CHL 20 Meq TABLET PO SCH (10:00)
[2020-09-05] MEDS ORDERED: DIGOXIN 0.125 MG TAB PO SCH (10:00)
[2020-09-05] MEDS ORDERED: ENOXAPARIN SOD 40 MG/0.4 ML SYRINGE SC SCH (10:00)
[2020-09-05] MEDS ORDERED: FUROSEMIDE 40 MG TAB PO SCH (10:00)
[2020-09-05] MEDS ORDERED: MULTIPLE VITAMIN TAB PO SCH (10:00)
[2020-09-05] MEDS ORDERED: ASCORBIC ACID 500 MG TAB PO SCH (10:00)
[2020-09-05] MEDS ORDERED: AMIODARONE HCL 200 MG TAB PO SCH (10:00)
[2020-09-05] MEDS ORDERED: FAMOTIDINE 20 MG TAB PO SCH (10:00)
[2020-09-05] MEDS ORDERED: SITAGLIPTIN 25 MG PO SCH (10:00)
[2020-09-05] MEDS ORDERED: SITAGLIPTIN PHOSPHATE 25 MG PO SCH (10:00)
[2020-09-05] MEDS ORDERED: ASPirin-EC 81 mg tab PO SCH (10:00)
[2020-09-05] MEDS: ZINC SULFATE 220mg CAP or TAB PO SCH (11:00)
[2020-09-05] MEDS: DOCUSATE SOD 100 MG CAP PO SCH (11:01)
[2020-09-05] MEDS: SACUBITRIL-VALSARTAN 24mg/26mg TAB PO SCH (11:02)
[2020-09-05] MEDS: CARVEDILOL 12.5 MG TAB PO SCH (11:02)
[2020-09-05 13:00] VITALS: BP 117/69
[2020-09-05 14:44] VITALS: BP 117/69
[2020-09-05] MEDS ORDERED: WARFARIN SODIUM 1 MG TAB PO ONE (17:00)
[2020-09-06] MEDS ORDERED: AMIODARONE 450mg/250ml AE 250 ML IV SCH (22:00)
== END 2020-09-05 18:10 | disposition home or self-care (01) | DRG 281 ==
LOC: ER 13:13 → TELE 22:29 → TELE-CENTR 23:26
PROVIDERS: ADMIT Nurse Practitioner Family; ATTEND Internal Medicine
PROC: 4B02XTZ Measurement of Cardiac Defibrillator, External Approach (ICD-10-PCS; principal; 2020-09-04)
DX: I48.20 Chronic atrial fibrillation, unspecified (principal); I21.A1 Myocardial infarction type 2; I50.22 Chronic systolic (congestive) heart failure; I13.0 Hypertensive heart and chronic kidney disease with heart failure and stage 1 through stage 4 chronic kidney disease, or unspecified chronic kidney disease; D68.69 Other thrombophilia; I25.110 Atherosclerotic heart disease of native coronary artery with unstable angina pectoris; I47.2 Ventricular tachycardia; D69.6 Thrombocytopenia, unspecified; D63.8 Anemia in other chronic diseases classified elsewhere; N18.30 Chronic kidney disease, stage 3 unspecified; J45.909 Unspecified asthma, uncomplicated; I25.5 Ischemic cardiomyopathy; K21.9 Gastro-esophageal reflux disease without esophagitis; E11.22 Type 2 diabetes mellitus with diabetic chronic kidney disease; E11.51 Type 2 diabetes mellitus with diabetic peripheral angiopathy without gangrene; E78.5 Hyperlipidemia, unspecified; I07.1 Rheumatic tricuspid insufficiency; I35.1 Nonrheumatic aortic (valve) insufficiency; T45.515A Adverse effect of anticoagulants, initial encounter; Z79.01 Long term (current) use of anticoagulants; Z79.82 Long term (current) use of aspirin; Z79.899 Other long term (current) drug therapy; Z82.49 Family history of ischemic heart disease and other diseases of the circulatory system; Z83.3 Family history of diabetes mellitus; Z95.1 Presence of aortocoronary bypass graft; Z95.2 Presence of prosthetic heart valve; Z98.61 Coronary angioplasty status; Z95.810 Presence of automatic (implantable) cardiac defibrillator; Z79.84 Long term (current) use of oral hypoglycemic drugs; Z20.822 Contact with and (suspected) exposure to COVID-19
CPT/HCPCS: 36415; 71045; 80053; 80162; 82962; 83036; 83735; 83880; 84443; 84484; 85025; 85610; 85730; 87426; 93005; 93306; G0378; J1815; J2405; Q9956

== ENCOUNTER 2020-09-06 19:51 | Inpatient (IN) | payer MEDICARE, OTHER ==
[~2020-09-06] VITALS: Ht 162.6 cm; Wt 57.8 kg
[~2020-09-06 19:51] MED LIST changes: -CLO01T PO; -HYDR-4833 PO; -INSLISPI; -LACT10SO3 PO; -LISI-275 PO; -MEGE40SU PO; +PANT1INJ3 PO; +SACU1TAB PO; +SITA50TA PO; -WARF2TAB49; -WARF5TAB71; +WARF5TAB71 PO
[2020-09-06 20:50] LABS: Basophils # (auto) 0 10 ^3/uL (0-0.2); Eosinophils # (auto) 0.1 10 ^3/uL (0-0.8); Monocytes # (auto) 0.6 10 ^3/uL (0-1.3); Nucleated Red Blood Cells % 0.2 %
[2020-09-06 20:52] LABS: Basophils % (auto) 0.4 % (0.0-2.0); Eosinophils % (auto) 1.5 % (0.0-7.0); Hematocrit 33.6 % (36.0-46.0); Lymphocytes # (auto) 0.7 10 ^3/uL (0.4-5.4); Lymphocytes % (auto) 10.9 % (10.0-50.0); Mean Corpuscular Hemoglobin 26.4 pg (28.0-32.0); Mean Corpuscular Hgb Conc. 32.7 g/dL (32.0-36.0); Mean Corpuscular Volume 80.8 fL (80.0-100.0); Monocytes % (auto) 9.7 % (0.0-12.0); Neutrophils # (auto) 4.6 10 ^3/uL (1.6-8.6); Neutrophils % (auto) 77.5 % (37.0-80.0); Red Blood Cells 4.16 10^6/uL (4.0-5.20); Red Cell Distribution Width 15.2 % (11.8-14.3)
[2020-09-06 21:05] LABS: Albumin 3.5 g/dL (3.4-5.0); Calcium 8.6 mg/dL (8.5-10.1); Magnesium 2.1 mg/dL (1.6-2.6); Potassium 4.2 mmol/L (3.5-5.1)
[2020-09-06 21:07] LABS: BUN/Creatinine Ratio 17.5
[2020-09-06 21:11] LABS: Bilirubin, Total 0.9 mg/dL (0.2-1.0); Total Protein 7.3 g/dL (6.4-8.2)
[2020-09-06] MEDS ORDERED: ONDANSETRON HCL 4 MG/2 ML VIAL IV PRN (22:00)
[2020-09-06] MEDS ORDERED: TEMAZEPAM 15 MG CAP PO PRN (22:00)
[2020-09-06] MEDS ORDERED: DEXTROSE (50%) 50ML SYRG IV PRN (22:00)
[2020-09-06] MEDS ORDERED: NITROGLYCERIN 0.4 MG SL TAB SL PRN (22:00)
[2020-09-06] MEDS ORDERED: ACETAMINOPHEN 325 MG TAB PO PRN (22:00)
[2020-09-06] MEDS ORDERED: MORPHINE SULFATE INJECTION 2 MG/ML SYRG IV PRN (22:00)
[2020-09-06 22:37] LABS: INR 2.51 (0.9-1.15)
[2020-09-06] MEDS: ATORVASTATIN 20 MG TAB PO SCH (22:59)
[2020-09-06] MEDS: CARVEDILOL 12.5 MG TAB PO SCH (22:59)
[2020-09-06] MEDS: ACCU-CHEK COMFORT CURVE STRIP VI SCH (23:00)
[2020-09-06] MEDS: InsuLIN REG 1unit/0.01ml Soln (100units/ml) SC SCH (23:00)
[2020-09-06] MEDS: SACUBITRIL-VALSARTAN 24mg/26mg TAB PO SCH (23:00)
[2020-09-07] MEDS: InsuLIN REG 1unit/0.01ml Soln (100units/ml) SC SCH ×4 (07:00→21:58)
[2020-09-07] MEDS: ACCU-CHEK COMFORT CURVE STRIP VI SCH ×4 (07:39→21:53)
[2020-09-07 07:43] LABS: Basophils # (auto) 0 10 ^3/uL (0-0.2); Basophils % (auto) 0.4 % (0.0-2.0); Eosinophils # (auto) 0.1 10 ^3/uL (0-0.8); Eosinophils % (auto) 2.1 % (0.0-7.0); Hematocrit 34.3 % (36.0-46.0); Hemoglobin 11.1 g/dL (12.2-16.2); Lymphocytes # (auto) 0.8 10 ^3/uL (0.4-5.4); Lymphocytes % (auto) 17.3 % (10.0-50.0); Mean Corpuscular Hemoglobin 26.3 pg (28.0-32.0); Mean Corpuscular Hgb Conc. 32.3 g/dL (32.0-36.0); Mean Corpuscular Volume 81.6 fL (80.0-100.0); Monocytes # (auto) 0.6 10 ^3/uL (0-1.3); Monocytes % (auto) 12.4 % (0.0-12.0); Neutrophils # (auto) 3.3 10 ^3/uL (1.6-8.6); Neutrophils % (auto) 67.8 % (37.0-80.0); Nucleated Red Blood Cells % 0.4 %; Red Blood Cells 4.21 10^6/uL (4.0-5.20); Red Cell Distribution Width 14.8 % (11.8-14.3); White Blood Cell 4.8 10^3/uL (4.4-10.8)
[2020-09-07 08:03] LABS: Albumin 3.3 g/dL (3.4-5.0); BUN/Creatinine Ratio 17.6; Calcium 8.6 mg/dL (8.5-10.1); Potassium 3.7 mmol/L (3.5-5.1)
[2020-09-07 08:07] LABS: Bilirubin, Total 1.1 mg/dL (0.2-1.0); Total Protein 6.6 g/dL (6.4-8.2)
[2020-09-07] MEDS ORDERED: AMIODARONE HCL 150 MG in D5W 5% 100 ML IV ONE (08:15)
[2020-09-07] MEDS ORDERED: AMIODARONE 450mg/250ml AE 250 ML IV SCH (08:15)
[2020-09-07 10:09] LABS: INR 2.02 (0.9-1.15)
[2020-09-07] MEDS: SACUBITRIL-VALSARTAN 24mg/26mg TAB PO SCH ×2 (10:12→21:34)
[2020-09-07] MEDS: PANTOPRAZOLE 40 MG TAB PO SCH (10:12)
[2020-09-07] MEDS: ASPirin 81 mg TAB PO SCH (10:12)
[2020-09-07] MEDS: FUROSEMIDE 40 MG TAB PO SCH (10:13)
[2020-09-07] MEDS: CARVEDILOL 12.5 MG TAB PO SCH ×2 (10:13→21:33)
[2020-09-07] MEDS: DIGOXIN 0.125 MG TAB PO SCH (10:14)
[2020-09-07] MEDS ORDERED: AMIO200T4 PO (10:40)
[2020-09-07 13:00] VITALS: BP 108/63
[2020-09-07 17:00] VITALS: BP 98/61
[2020-09-07] MEDS ORDERED: WARFARIN SODIUM 1 MG TAB PO ONE (17:00)
[2020-09-07] MEDS: AMIODARONE 450mg/250ml AE 250 ML IV SCH ×2 (18:20→21:52)
[2020-09-07 21:21] LABS: Urine Bacteria NONE SEEN /hpf (None Seen); Urine Blood Negative /uL (Negative); Urine Hyaline Cast MOD /lpf (0 - 2); Urine Specific Gravity 1.016 (1.001-1.035); Urine WBC 6 /hpf (0 - 5)
[2020-09-07] MEDS: ATORVASTATIN 20 MG TAB PO SCH (21:34)
[2020-09-07 22:00] VITALS: BP 98/64
[2020-09-08 04:51] VITALS: BP 100/68
[2020-09-08] MEDS: InsuLIN REG 1unit/0.01ml Soln (100units/ml) SC SCH ×4 (06:09→21:46)
[2020-09-08] MEDS: ACCU-CHEK COMFORT CURVE STRIP VI SCH ×4 (06:09→21:43)
[2020-09-08 06:14] LABS: Basophils # (auto) 0 10 ^3/uL (0-0.2); Basophils % (auto) 0.5 % (0.0-2.0); Eosinophils # (auto) 0.1 10 ^3/uL (0-0.8); Eosinophils % (auto) 2.7 % (0.0-7.0); Lymphocytes # (auto) 0.8 10 ^3/uL (0.4-5.4); Lymphocytes % (auto) 21.5 % (10.0-50.0); Mean Corpuscular Hemoglobin 27.1 pg (28.0-32.0); Mean Corpuscular Hgb Conc. 33.4 g/dL (32.0-36.0); Monocytes # (auto) 0.7 10 ^3/uL (0-1.3); Monocytes % (auto) 17.2 % (0.0-12.0); Neutrophils # (auto) 2.3 10 ^3/uL (1.6-8.6); Neutrophils % (auto) 58.1 % (37.0-80.0); Nucleated Red Blood Cells % 0.2 %; Red Blood Cells 4.07 10^6/uL (4.0-5.20); Red Cell Distribution Width 14.7 % (11.8-14.3); White Blood Cell 3.9 10^3/uL (4.4-10.8)
[2020-09-08 06:40] LABS: INR 1.85 (0.9-1.15)
[2020-09-08 09:00] VITALS: BP 97/55
[2020-09-08] MEDS: ASPirin 81 mg TAB PO SCH (09:09)
[2020-09-08] MEDS: FUROSEMIDE 40 MG TAB PO SCH (09:10)
[2020-09-08] MEDS: DIGOXIN 0.125 MG TAB PO SCH (09:10)
[2020-09-08] MEDS: SACUBITRIL-VALSARTAN 24mg/26mg TAB PO SCH ×2 (09:10→21:43)
[2020-09-08] MEDS: PANTOPRAZOLE 40 MG TAB PO SCH (09:10)
[2020-09-08] MEDS: AMIODARONE HCL 200 MG TAB PO SCH ×2 (09:11→21:42)
[2020-09-08] MEDS: CARVEDILOL 12.5 MG TAB PO SCH ×2 (09:20→21:40)
[2020-09-08 13:00] VITALS: BP 100/69
[2020-09-08] MEDS: AMIODARONE 450mg/250ml AE 250 ML IV SCH (13:59)
[2020-09-08 17:00] VITALS: BP 98/65
[2020-09-08] MEDS ORDERED: WARFARIN SODIUM 2 MG TAB PO ONE (17:00)
[2020-09-08] MEDS: ATORVASTATIN 20 MG TAB PO SCH (21:42)
[2020-09-08 22:00] VITALS: BP 99/68
[2020-09-09 05:00] VITALS: BP 100/66
[2020-09-09] MEDS: ACCU-CHEK COMFORT CURVE STRIP VI SCH ×2 (06:06→11:30)
[2020-09-09] MEDS: InsuLIN REG 1unit/0.01ml Soln (100units/ml) SC SCH ×2 (06:06→11:30)
[2020-09-09] MEDS: AMIODARONE 450mg/250ml AE 250 ML IV SCH (06:09)
[2020-09-09 07:14] LABS: INR 2.43 (0.9-1.15); Partial Thromboplastin Time 41.1 sec (23.0-31.2)
[2020-09-09 08:00] VITALS: BP 104/61
[2020-09-09] MEDS: ASPirin 81 mg TAB PO SCH (09:44)
[2020-09-09] MEDS: AMIODARONE HCL 200 MG TAB PO SCH (09:45)
[2020-09-09] MEDS: CARVEDILOL 12.5 MG TAB PO SCH (09:45)
[2020-09-09] MEDS: SACUBITRIL-VALSARTAN 24mg/26mg TAB PO SCH (09:46)
[2020-09-09] MEDS: FUROSEMIDE 40 MG TAB PO SCH (09:46)
[2020-09-09] MEDS: DIGOXIN 0.125 MG TAB PO SCH (09:47)
[2020-09-09] MEDS: PANTOPRAZOLE 40 MG TAB PO SCH (09:47)
[2020-09-09 12:00] VITALS: BP 113/71
[2020-09-09 12:12] VITALS: BP 113/71
== END 2020-09-09 13:51 | disposition home or self-care (01) | DRG 315 ==
LOC: EDBD 19:51 → ER 19:53 → TELE 21:47 → TELE-CENTR 09-07 08:46
PROVIDERS: ADMIT Nurse Practitioner; ATTEND Internal Medicine
PROC: 4B02XTZ Measurement of Cardiac Defibrillator, External Approach (ICD-10-PCS; principal; 2020-09-09)
DX: T82.118A Breakdown (mechanical) of other cardiac electronic device, initial encounter (principal); I50.22 Chronic systolic (congestive) heart failure; D68.69 Other thrombophilia; I13.0 Hypertensive heart and chronic kidney disease with heart failure and stage 1 through stage 4 chronic kidney disease, or unspecified chronic kidney disease; I24.8 Other forms of acute ischemic heart disease; I48.20 Chronic atrial fibrillation, unspecified; E78.5 Hyperlipidemia, unspecified; E11.22 Type 2 diabetes mellitus with diabetic chronic kidney disease; E11.51 Type 2 diabetes mellitus with diabetic peripheral angiopathy without gangrene; I25.10 Atherosclerotic heart disease of native coronary artery without angina pectoris; J45.909 Unspecified asthma, uncomplicated; N18.9 Chronic kidney disease, unspecified; Z20.822 Contact with and (suspected) exposure to COVID-19; Y71.2 Prosthetic and other implants, materials and accessory cardiovascular devices associated with adverse incidents; K21.9 Gastro-esophageal reflux disease without esophagitis; Y92.89 Other specified places as the place of occurrence of the external cause; Z95.810 Presence of automatic (implantable) cardiac defibrillator; Z79.01 Long term (current) use of anticoagulants; Z79.82 Long term (current) use of aspirin; Z82.49 Family history of ischemic heart disease and other diseases of the circulatory system; Z79.899 Other long term (current) drug therapy; Z80.9 Family history of malignant neoplasm, unspecified; Z83.3 Family history of diabetes mellitus; Z91.14 Patient's other noncompliance with medication regimen; Z95.1 Presence of aortocoronary bypass graft; Z95.2 Presence of prosthetic heart valve; Z98.61 Coronary angioplasty status
CPT/HCPCS: 36415; 71045; 80053; 80162; 81001; 82565; 82962; 83735; 83880; 84484; 85025; 85049; 85379; 85610; 85730; 87081; 87426; 93005; 96365; G0378; J1815; J7060

== ENCOUNTER → 2021-03-07 | Outpatient (CLI) | payer MEDICARE ==
[~2021-03-07] MED LIST changes: +AMIO200T4 PO
[2021-03-07 09:06] LABS: Basophils # (auto) 0 10 ^3/uL (0-0.2); Eosinophils # (auto) 0.1 10 ^3/uL (0-0.8); Eosinophils % (auto) 3.5 % (0.0-7.0); Hematocrit 31.1 % (36.0-46.0); Lymphocytes # (auto) 0.7 10 ^3/uL (0.4-5.4); Lymphocytes % (auto) 16.9 % (10.0-50.0); Mean Corpuscular Hemoglobin 25.9 pg (28.0-32.0); Mean Corpuscular Hgb Conc. 32.1 g/dL (32.0-36.0); Mean Corpuscular Volume 80.7 fL (80.0-100.0); Monocytes # (auto) 0.5 10 ^3/uL (0-1.3); Monocytes % (auto) 12.7 % (0.0-12.0); Neutrophils # (auto) 2.8 10 ^3/uL (1.6-8.6); Neutrophils % (auto) 65.9 % (37.0-80.0); Red Blood Cells 3.85 10^6/uL (4.0-5.20); Red Cell Distribution Width 15.7 % (11.8-14.3); White Blood Cell 4.2 10^3/uL (4.4-10.8)
[2021-03-07 09:34] LABS: BUN/Creatinine Ratio 14.1; Calcium 9.1 mg/dL (8.5-10.1); Potassium 4.4 mmol/L (3.5-5.1)
[2021-03-07 09:37] LABS: Bilirubin, Total 0.8 mg/dL (0.2-1.0); Total Protein 7.8 g/dL (6.4-8.2)
== END | disposition home or self-care (01) ==
LOC: LAB 08:47
PROVIDERS: ATTEND Student in an Organized Health Care Education/Training Program
DX: Z00.00 Encounter for general adult medical examination without abnormal findings (principal); I10 Essential (primary) hypertension; Z79.899 Other long term (current) drug therapy
CPT/HCPCS: 36415; 80053; 80061; 82306; 83036; 84443; 85025

== ENCOUNTER → 2021-04-14 | Outpatient (CLI) | payer MEDICARE ==
[2021-04-17 12:22] LABS: Hepatitis A Ab IgM Negative; Hepatitis B Core IgM Negative; Hepatitis C Antibody Negative (Negative)
== END | disposition home or self-care (01) ==
LOC: LAB 08:53
PROVIDERS: ATTEND Student in an Organized Health Care Education/Training Program
DX: R79.89 Other specified abnormal findings of blood chemistry (principal)
CPT/HCPCS: 36415; 80074

== ENCOUNTER 2021-05-22 17:32 | Inpatient (IN) | payer MEDICARE, BC ==
[~2021-05-22] VITALS: Ht 162.6 cm; Wt 62.0 kg
[2021-05-22] MEDS ORDERED: SODIUM CHLORIDE 0.9% 1,000 ML IV ONE (18:00)
[2021-05-22] MEDS ORDERED: ONDANSETRON HCL 4 MG/2 ML VIAL IV ONE (18:00)
[2021-05-22] MEDS ORDERED: HYDROmorphone HCL 2 MG/ML VL IV ONE (18:00)
[2021-05-22] MEDS ORDERED: IOHEXOL 300 MG/ML 100ML BOTTLE IJ ONE (20:29)
[2021-05-22 20:54] LABS: Albumin 3.7 g/dL (3.4-5.0); Calcium 8.3 mg/dL (8.5-10.1); Potassium 4.5 mmol/L (3.5-5.1)
[2021-05-22 20:57] LABS: BUN/Creatinine Ratio 9.5; Bilirubin, Total 1.5 mg/dL (0.2-1.0); Total Protein 7.9 g/dL (6.4-8.2)
[2021-05-22 21:02] LABS: Hematocrit 42.4 % (36.0-46.0); Hemoglobin 13.5 g/dL (12.2-16.2); Mean Corpuscular Hgb Conc. 31.8 g/dL (32.0-36.0); Mean Corpuscular Volume 84.9 fL (80.0-100.0); White Blood Cell 3.5 10^3/uL (4.4-10.8)
[2021-05-22 21:06] LABS: Red Cell Distribution Width 20.1 % (11.8-14.3)
[2021-05-22 21:08] LABS: Basophils % (manual) 0 (0.0-2.0); Blast Cells 0; Eosinophils % (manual) 0 (0-7); Metamyelocytes % 0; Myelocytes % 0; Promyelocytes % 0; Reactive Lymphocytes 0
[2021-05-22 21:58] LABS: Band Neutrophils % (manual) 2; Lymphocytes % (manual) 17 (10.0-50.0); Monocytes % (manual) 13 (0-12)
[2021-05-23] MEDS ORDERED: MORPHINE SULFATE INJECTION 2 MG/ML SYRG IV PRN (01:45)
[2021-05-23] MEDS ORDERED: MORPHINE SULFATE 4 MG/ML SYR/VIAL IV PRN (01:45)
[2021-05-23] MEDS ORDERED: ONDANSETRON HCL 4 MG/2 ML VIAL IV PRN (01:45)
[2021-05-23] MEDS ORDERED: NITROGLYCERIN 0.4 MG SL TAB SL PRN ×2 (01:45)
[2021-05-23] MEDS ORDERED: PIPERACILLIN-TAZOB 3.375GM 100 ML IV ONE (01:45)
[2021-05-23] MEDS ORDERED: DEXTROSE (50%) 50ML SYRG IV PRN (01:45)
[2021-05-23 02:59] LABS: INR 4.87 (0.9-1.15)
[2021-05-23] MEDS: InsuLIN REG 1unit/0.01ml Soln (100units/ml) SC SCH ×3 (06:00→18:00)
[2021-05-23] MEDS: SODIUM CHLOR 0.9% PF (SALINE LOCK) 10ML VIAL/SYR IV SCH ×3 (06:10→21:27)
[2021-05-23] MEDS: ACCU-CHEK COMFORT CURVE STRIP VI SCH ×3 (06:10→18:00)
[2021-05-23 06:24] LABS: Hematocrit 38.1 % (36.0-46.0); Hemoglobin 12.3 g/dL (12.2-16.2); Mean Corpuscular Hemoglobin 27.4 pg (28.0-32.0); Mean Corpuscular Hgb Conc. 32.3 g/dL (32.0-36.0); Red Blood Cells 4.48 10^6/uL (4.0-5.20); Red Cell Distribution Width 19.8 % (11.8-14.3); White Blood Cell 3.8 10^3/uL (4.4-10.8)
[2021-05-23 06:38] LABS: Calcium 8.5 mg/dL (8.5-10.1)
[2021-05-23 06:42] LABS: Albumin 3.4 g/dL (3.4-5.0); BUN/Creatinine Ratio 10.7; Basophils % (manual) 0 (0.0-2.0); Blast Cells 0; Eosinophils % (manual) 0 (0-7); Metamyelocytes % 0; Myelocytes % 0; Promyelocytes % 0; Reactive Lymphocytes 0
[2021-05-23 06:45] LABS: Bilirubin, Total 1.7 mg/dL (0.2-1.0); Total Protein 6.8 g/dL (6.4-8.2)
[2021-05-23] MEDS: PIPERACILLIN-TAZOB 2.25GM 50 ML IV SCH ×3 (08:13→19:56)
[2021-05-23 09:13] LABS: Band Neutrophils % (manual) 2; Lymphocytes % (manual) 10 (10.0-50.0); Monocytes % (manual) 18 (0-12)
[2021-05-23] MEDS ORDERED: ASPirin-EC 81 mg tab PO SCH (10:00)
[2021-05-23] MEDS: SACUBITRIL-VALSARTAN 24mg/26mg TAB PO SCH ×2 (10:00→21:28)
[2021-05-23] MEDS ORDERED: FAMOTIDINE 20 MG TAB PO SCH (10:00)
[2021-05-23] MEDS: CARVEDILOL 12.5 MG TAB PO SCH ×2 (10:00→21:28)
[2021-05-23] MEDS ORDERED: PANTOPRAZOLE 40 MG/10 ML VIAL INJ IV SCH (10:00)
[2021-05-23] MEDS ORDERED: FUROSEMIDE 40 MG TAB PO SCH (10:00)
[2021-05-23] MEDS ORDERED: MULTIPLE VITAMIN TAB PO SCH (10:00)
[2021-05-23] MEDS ORDERED: DIGOXIN 0.125 MG TAB PO SCH (10:00)
[2021-05-23] MEDS ORDERED: AMIODARONE HCL 200 MG TAB PO SCH (10:00)
[2021-05-23] MEDS: SODIUM CHLORIDE 0.9% 1,000 ML IV SCH ×2 (12:30→19:56)
[2021-05-23 13:00] VITALS: BP 119/68
[2021-05-23 17:00] VITALS: BP 129/70
[2021-05-23 22:00] VITALS: BP 110/57
[2021-05-24] MEDS: ACCU-CHEK COMFORT CURVE STRIP VI SCH ×2 (00:16→06:20)
[2021-05-24] MEDS: PIPERACILLIN-TAZOB 2.25GM 50 ML IV SCH (02:25)
[2021-05-24 05:00] VITALS: BP 118/70
[2021-05-24] MEDS: InsuLIN REG 1unit/0.01ml Soln (100units/ml) SC SCH ×2 (06:00)
[2021-05-24] MEDS: SODIUM CHLOR 0.9% PF (SALINE LOCK) 10ML VIAL/SYR IV SCH (06:19)
[2021-05-24 06:33] LABS: Basophils # (auto) 0 10 ^3/uL (0-0.2); Eosinophils # (auto) 0.1 10 ^3/uL (0-0.8); Eosinophils % (auto) 1.9 % (0.0-7.0); Hematocrit 37.9 % (36.0-46.0); Hemoglobin 12.4 g/dL (12.2-16.2); Lymphocytes # (auto) 0.6 10 ^3/uL (0.4-5.4); Lymphocytes % (auto) 17.5 % (10.0-50.0); Mean Corpuscular Hemoglobin 27.7 pg (28.0-32.0); Mean Corpuscular Hgb Conc. 32.6 g/dL (32.0-36.0); Monocytes # (auto) 0.5 10 ^3/uL (0-1.3); Monocytes % (auto) 16.3 % (0.0-12.0); Neutrophils % (auto) 63.3 % (37.0-80.0); Nucleated Red Blood Cells % 0.6 %; Red Blood Cells 4.45 10^6/uL (4.0-5.20); White Blood Cell 3.1 10^3/uL (4.4-10.8)
[2021-05-24 06:46] LABS: Calcium 8.7 mg/dL (8.5-10.1); Potassium 3.9 mmol/L (3.5-5.1)
[2021-05-24 06:49] LABS: Albumin 3.1 g/dL (3.4-5.0); BUN/Creatinine Ratio 11.4
[2021-05-24 07:03] LABS: Bilirubin, Total 1.5 mg/dL (0.2-1.0); Total Protein 6.4 g/dL (6.4-8.2)
== END 2021-05-24 08:40 | disposition left against medical advice (07) | DRG 444 ==
LOC: EDUNIT# 17:32 → EDBD 17:32 → ER 17:32 → OVERFLOW 05-23 01:37 → WEST WING 05-23 08:46
PROVIDERS: ADMIT Internal Medicine; ATTEND Family Medicine
PROC: 4B02XTZ Measurement of Cardiac Defibrillator, External Approach (ICD-10-PCS; principal; 2021-05-23)
DX: K80.10 Calculus of gallbladder with chronic cholecystitis without obstruction (principal); I50.23 Acute on chronic systolic (congestive) heart failure; N17.9 Acute kidney failure, unspecified; I13.0 Hypertensive heart and chronic kidney disease with heart failure and stage 1 through stage 4 chronic kidney disease, or unspecified chronic kidney disease; R18.8 Other ascites; I25.10 Atherosclerotic heart disease of native coronary artery without angina pectoris; D63.8 Anemia in other chronic diseases classified elsewhere; E11.22 Type 2 diabetes mellitus with diabetic chronic kidney disease; E11.40 Type 2 diabetes mellitus with diabetic neuropathy, unspecified; E78.00 Pure hypercholesterolemia, unspecified; I25.5 Ischemic cardiomyopathy; I48.91 Unspecified atrial fibrillation; J44.9 Chronic obstructive pulmonary disease, unspecified; K21.9 Gastro-esophageal reflux disease without esophagitis; N18.32 Chronic kidney disease, stage 3b; E78.5 Hyperlipidemia, unspecified; I49.9 Cardiac arrhythmia, unspecified; Z20.822 Contact with and (suspected) exposure to COVID-19; R74.01 Elevation of levels of liver transaminase levels; Z79.01 Long term (current) use of anticoagulants; Z82.49 Family history of ischemic heart disease and other diseases of the circulatory system; Z79.82 Long term (current) use of aspirin; Z79.899 Other long term (current) drug therapy; Z80.9 Family history of malignant neoplasm, unspecified; Z83.3 Family history of diabetes mellitus; Z95.1 Presence of aortocoronary bypass graft; Z95.2 Presence of prosthetic heart valve; Z95.810 Presence of automatic (implantable) cardiac defibrillator; Z98.61 Coronary angioplasty status
CPT/HCPCS: 36415; 71045; 74176; 76705; 78226; 80053; 82962; 83690; 85007; 85025; 85027; 85610; 87040; 93005; 93306; 96361; 96365; 96375; G0378; J2405; J2543

== ENCOUNTER 2021-05-25 18:34 | Inpatient (IN) | payer BC, MEDICARE ==
[~2021-05-25] VITALS: Ht 162.6 cm; Wt 62.6 kg
[~2021-05-25 18:34] MED LIST changes: -NITR0.4S29 SL; -[UNRECOGNIZED DRUG - CODE] PO
[2021-05-25] MEDS ORDERED: MORPHINE SULFATE 4 MG/ML SYR/VIAL IV ONE (23:15)
[2021-05-25] MEDS ORDERED: ONDANSETRON HCL 4 MG/2 ML VIAL IV ONE (23:15)
[2021-05-25 23:31] LABS: Basophils # (auto) 0 10 ^3/uL (0-0.2); Basophils % (auto) 0.7 % (0.0-2.0); Eosinophils # (auto) 0 10 ^3/uL (0-0.8); Eosinophils % (auto) 0.5 % (0.0-7.0); Hematocrit 42.9 % (36.0-46.0); Hemoglobin 13.7 g/dL (12.2-16.2); Lymphocytes # (auto) 0.6 10 ^3/uL (0.4-5.4); Lymphocytes % (auto) 10.9 % (10.0-50.0); Mean Corpuscular Hemoglobin 27.2 pg (28.0-32.0); Mean Corpuscular Hgb Conc. 31.9 g/dL (32.0-36.0); Mean Corpuscular Volume 85.2 fL (80.0-100.0); Monocytes # (auto) 0.6 10 ^3/uL (0-1.3); Monocytes % (auto) 12.8 % (0.0-12.0); Neutrophils # (auto) 3.8 10 ^3/uL (1.6-8.6); Neutrophils % (auto) 75.1 % (37.0-80.0); Nucleated Red Blood Cells % 0.8 %; Red Blood Cells 5.03 10^6/uL (4.0-5.20); White Blood Cell 5.1 10^3/uL (4.4-10.8)
[2021-05-25 23:40] LABS: Albumin 3.5 g/dL (3.4-5.0); BUN/Creatinine Ratio 11.3; Calcium 8.5 mg/dL (8.5-10.1); Magnesium 2.5 mg/dL (1.6-2.6); Potassium 5.2 mmol/L (3.5-5.1)
[2021-05-25 23:42] LABS: Lactic Acid w/Reflex 2.4 mmol/L (0.4-2.0)
[2021-05-25 23:45] LABS: Bilirubin, Total 2.1 mg/dL (0.2-1.0); Total Protein 7.6 g/dL (6.4-8.2)
[2021-05-25 23:50] LABS: INR 2.84 (0.9-1.15)
[2021-05-26] VITALS (7 sets, daily range): BP systolic 98–115; BP diastolic 59–66
[2021-05-26] MEDS ORDERED: DEXTROSE (50%) 50ML SYRG IV PRN (02:00)
[2021-05-26] MEDS ORDERED: MORPHINE SULFATE 4 MG/ML SYR/VIAL IV PRN (02:15)
[2021-05-26] MEDS ORDERED: MORPHINE SULFATE INJECTION 2 MG/ML SYRG IV PRN (02:15)
[2021-05-26] MEDS ORDERED: NITROGLYCERIN 0.4 MG SL TAB SL PRN ×2 (02:15)
[2021-05-26] MEDS ORDERED: PNEUMOCOCCAL VACC POLYS 25 MCG/0.5 ML VIAL IM ONE (04:30)
[2021-05-26 06:20] LABS: Basophils # (auto) 0 10 ^3/uL (0-0.2); Basophils % (auto) 0.7 % (0.0-2.0); Eosinophils # (auto) 0 10 ^3/uL (0-0.8); Eosinophils % (auto) 0.9 % (0.0-7.0); Hematocrit 38.5 % (36.0-46.0); Hemoglobin 12.5 g/dL (12.2-16.2); Lymphocytes # (auto) 0.7 10 ^3/uL (0.4-5.4); Lymphocytes % (auto) 15.5 % (10.0-50.0); Mean Corpuscular Hemoglobin 27.4 pg (28.0-32.0); Mean Corpuscular Hgb Conc. 32.5 g/dL (32.0-36.0); Mean Corpuscular Volume 84.3 fL (80.0-100.0); Monocytes # (auto) 0.7 10 ^3/uL (0-1.3); Monocytes % (auto) 15.1 % (0.0-12.0); Neutrophils % (auto) 67.8 % (37.0-80.0); Nucleated Red Blood Cells % 1.2 %; Red Blood Cells 4.56 10^6/uL (4.0-5.20); White Blood Cell 4.4 10^3/uL (4.4-10.8)
[2021-05-26 06:24] LABS: Red Cell Distribution Width 20.1 % (11.8-14.3)
[2021-05-26 06:41] LABS: Potassium 3.7 mmol/L (3.5-5.1)
[2021-05-26 06:51] LABS: Albumin 3.2 g/dL (3.4-5.0); BUN/Creatinine Ratio 12.9; Bilirubin, Total 1.6 mg/dL (0.2-1.0); Calcium 8.4 mg/dL (8.5-10.1); Magnesium 2.3 mg/dL (1.6-2.6); Total Protein 6.7 g/dL (6.4-8.2)
[2021-05-26] MEDS ORDERED: ACCU-CHEK COMFORT CURVE STRIP VI SCH (07:00)
[2021-05-26] MEDS ORDERED: InsuLIN REG 1unit/0.01ml Soln (100units/ml) SC SCH (07:00)
[2021-05-26] MEDS ORDERED: CARVEDILOL 12.5 MG TAB PO SCH (10:00)
[2021-05-26] MEDS: ASPirin-EC 81 mg tab PO SCH (10:18)
[2021-05-26] MEDS ORDERED: FUROSEMIDE 20 MG/2 ML VIAL IV ONE (11:30)
[2021-05-26] MEDS: ISOSORBIDE DINITRATE 10 MG TAB PO SCH ×2 (12:00→17:18)
[2021-05-26] MEDS ORDERED: metroNIDAZOLE 500MG/100ML 100 ML IV SCH (14:00)
[2021-05-26] MEDS ORDERED: ceFAZolin 1GM/50ML 50 ML IV SCH (14:14)
[2021-05-26] MEDS ORDERED: WARFARIN SODIUM 2.5 MG TAB PO ONE (17:00)
[2021-05-26] MEDS ORDERED: WARFARIN SODIUM 5 MG TAB PO SCH (17:00)
[2021-05-26] MEDS: D5W/SOD CHL 0.45%/KCL 20MEQ 1,000 ML IV SCH (17:10)
[2021-05-26 18:27] LABS: Urine Bacteria NONE SEEN /hpf (None Seen); Urine Blood Negative /uL (Negative); Urine Hyaline Cast FEW /lpf (0 - 2); Urine Specific Gravity 1.007 (1.001-1.035); Urine WBC <1 /hpf (0 - 5)
[2021-05-26] MEDS: CARVEDILOL 12.5 MG TAB PO SCH (21:33)
[2021-05-27] MEDS: metroNIDAZOLE 500MG/100ML 100 ML IV SCH ×3 (02:00→18:41)
[2021-05-27] MEDS: D5W/SOD CHL 0.45%/KCL 20MEQ 1,000 ML IV SCH (03:20)
[2021-05-27 05:00] VITALS: BP 106/66
[2021-05-27] MEDS: ceFAZolin 1GM/50ML 50 ML IV SCH ×2 (05:00→17:47)
[2021-05-27 05:37] LABS: Basophils # (auto) 0 10 ^3/uL (0-0.2); Basophils % (auto) 0.7 % (0.0-2.0); Eosinophils # (auto) 0.1 10 ^3/uL (0-0.8); Eosinophils % (auto) 2.1 % (0.0-7.0); Hematocrit 37.3 % (36.0-46.0); Lymphocytes # (auto) 0.6 10 ^3/uL (0.4-5.4); Lymphocytes % (auto) 18.2 % (10.0-50.0); Mean Corpuscular Hgb Conc. 32.3 g/dL (32.0-36.0); Mean Corpuscular Volume 83.7 fL (80.0-100.0); Monocytes # (auto) 0.5 10 ^3/uL (0-1.3); Monocytes % (auto) 15.1 % (0.0-12.0); Neutrophils # (auto) 2.1 10 ^3/uL (1.6-8.6); Neutrophils % (auto) 63.9 % (37.0-80.0); Nucleated Red Blood Cells % 1.7 %; Red Blood Cells 4.46 10^6/uL (4.0-5.20); Red Cell Distribution Width 20.2 % (11.8-14.3); White Blood Cell 3.2 10^3/uL (4.4-10.8)
[2021-05-27 05:43] LABS: INR 2.22 (0.9-1.15); Partial Thromboplastin Time 42.4 sec (23.6-33.0)
[2021-05-27 05:47] LABS: Albumin 2.9 g/dL (3.4-5.0); Calcium 8.2 mg/dL (8.5-10.1); Magnesium 2.1 mg/dL (1.6-2.6); Potassium 3.5 mmol/L (3.5-5.1)
[2021-05-27 05:52] LABS: BUN/Creatinine Ratio 12.4; Bilirubin, Total 1.2 mg/dL (0.2-1.0); Total Protein 6.2 g/dL (6.4-8.2)
[2021-05-27] MEDS: ISOSORBIDE DINITRATE 10 MG TAB PO SCH ×3 (05:56→17:49)
[2021-05-27 09:00] VITALS: BP 105/63
[2021-05-27] MEDS: CARVEDILOL 12.5 MG TAB PO SCH ×2 (10:00→22:50)
[2021-05-27] MEDS: ASPirin-EC 81 mg tab PO SCH (11:04)
[2021-05-27 13:00] VITALS: BP 112/70
[2021-05-27] MEDS ORDERED: PPN PER PHARMACY 0 ML IV SCH (14:00)
[2021-05-27 17:00] VITALS: BP 117/69
[2021-05-27] MEDS ORDERED: POTASSIUM PHOSP 26.4MEQ(18MMOL) IN NS 100 ML IV ONE (17:00)
[2021-05-27] MEDS ORDERED: WARFARIN SODIUM 5 MG TAB PO ONE (17:00)
[2021-05-27] MEDS ORDERED: AMINO ACID INFUSION IN D10W 1,000 ML IV NR (20:00)
[2021-05-27 21:58] VITALS: BP 127/73
[2021-05-28] VITALS (8 sets, daily range): BP systolic 96–109; BP diastolic 43–66
[2021-05-28] MEDS ORDERED: DEXTROSE (50%) 50ML SYRG IV SCH ×2
[2021-05-28] MEDS ORDERED: InsuLIN REG 1unit/0.01ml Soln (100units/ml) SC SCH
[2021-05-28] MEDS ORDERED: ACCU-CHEK COMFORT CURVE STRIP VI SCH
[2021-05-28] MEDS: metroNIDAZOLE 500MG/100ML 100 ML IV SCH ×3 (02:00→18:28)
[2021-05-28] MEDS: ceFAZolin 1GM/50ML 50 ML IV SCH ×2 (05:00→16:46)
[2021-05-28] MEDS: InsuLIN REG 1unit/0.01ml Soln (100units/ml) SC SCH ×4 (06:00→18:32)
[2021-05-28] MEDS: ISOSORBIDE DINITRATE 10 MG TAB PO SCH ×3 (06:00→18:00)
[2021-05-28] MEDS: ACCU-CHEK COMFORT CURVE STRIP VI SCH ×4 (06:21→18:31)
[2021-05-28 07:55] LABS: Albumin 2.7 g/dL (3.4-5.0); Calcium 8.2 mg/dL (8.5-10.1); Magnesium 2.6 mg/dL (1.6-2.6); Potassium 4.1 mmol/L (3.5-5.1)
[2021-05-28 08:01] LABS: BUN/Creatinine Ratio 12.4; Phosphorus 3.5 mg/dL (2.5-4.90); Pre Albumin 15.5 mg/dL (20.0-40.0); Total Protein 5.8 g/dL (6.4-8.2)
[2021-05-28 08:43] LABS: INR 2.49 (0.9-1.15)
[2021-05-28] MEDS: CARVEDILOL 12.5 MG TAB PO SCH ×2 (10:00→22:00)
[2021-05-28] MEDS: ASPirin-EC 81 mg tab PO SCH (10:35)
[2021-05-28] MEDS ORDERED: HYDROmorphone HCL 2 MG/ML VL IV ONE (16:30)
[2021-05-28] MEDS: ONDANSETRON HCL 4 MG/2 ML VIAL IV PRN (18:33)
[2021-05-28] MEDS ORDERED: PPN PER PHARMACY IV NR ×6 (20:00)
[2021-05-29] MEDS: metroNIDAZOLE 500MG/100ML 100 ML IV SCH ×3 (02:00→17:11)
[2021-05-29] MEDS: HYDROmorphone HCL 2 MG/ML VL IV PRN ×2 (03:57→18:20)
[2021-05-29 04:31] VITALS: BP 104/66
[2021-05-29] MEDS: ceFAZolin 1GM/50ML 50 ML IV SCH ×2 (05:00→17:11)
[2021-05-29] MEDS: ONDANSETRON HCL 4 MG/2 ML VIAL IV PRN ×3 (05:04→17:10)
[2021-05-29] MEDS: InsuLIN REG 1unit/0.01ml Soln (100units/ml) SC SCH ×4 (05:34→17:47)
[2021-05-29] MEDS: ACCU-CHEK COMFORT CURVE STRIP VI SCH ×4 (05:55→17:11)
[2021-05-29] MEDS: ISOSORBIDE DINITRATE 10 MG TAB PO SCH ×3 (06:00→16:57)
[2021-05-29 06:02] LABS: Basophils # (auto) 0 10 ^3/uL (0-0.2); Basophils % (auto) 1.3 % (0.0-2.0); Eosinophils # (auto) 0 10 ^3/uL (0-0.8); Hematocrit 37.8 % (36.0-46.0); Hemoglobin 12.3 g/dL (12.2-16.2); Lymphocytes # (auto) 0.6 10 ^3/uL (0.4-5.4); Mean Corpuscular Hemoglobin 27.7 pg (28.0-32.0); Mean Corpuscular Hgb Conc. 32.6 g/dL (32.0-36.0); Mean Corpuscular Volume 84.9 fL (80.0-100.0); Monocytes # (auto) 0.6 10 ^3/uL (0-1.3); Monocytes % (auto) 16.4 % (0.0-12.0); Neutrophils # (auto) 2.5 10 ^3/uL (1.6-8.6); Neutrophils % (auto) 66.3 % (37.0-80.0); Nucleated Red Blood Cells % 2.7 %; Red Blood Cells 4.45 10^6/uL (4.0-5.20); Red Cell Distribution Width 20.7 % (11.8-14.3); White Blood Cell 3.8 10^3/uL (4.4-10.8)
[2021-05-29 06:12] LABS: INR 3.92 (0.9-1.15)
[2021-05-29 06:17] LABS: Albumin 3.1 g/dL (3.4-5.0); Calcium 7.9 mg/dL (8.5-10.1); Potassium 3.7 mmol/L (3.5-5.1); Uric Acid 7.7 mg/dL (2.6-6.0)
[2021-05-29 06:21] LABS: Bilirubin, Total 1.2 mg/dL (0.2-1.0); Phosphorus 2.7 mg/dL (2.5-4.90); Total Protein 6.4 g/dL (6.4-8.2)
[2021-05-29 09:23] VITALS: BP 99/64
[2021-05-29] MEDS ORDERED: AMIO200T4 PO (09:33)
[2021-05-29] MEDS: ASPirin-EC 81 mg tab PO SCH (09:42)
[2021-05-29] MEDS: CARVEDILOL 12.5 MG TAB PO SCH ×2 (09:42→22:00)
[2021-05-29 13:00] VITALS: BP 104/70
[2021-05-29 16:46] VITALS: BP 103/67
[2021-05-29] MEDS ORDERED: PPN PER PHARMACY IV NR ×17 (20:00)
[2021-05-29 22:00] VITALS: BP 115/96
[2021-05-30] MEDS: metroNIDAZOLE 500MG/100ML 100 ML IV SCH ×3 (02:50→18:06)
[2021-05-30 05:00] VITALS: BP 103/63
[2021-05-30] MEDS: ACCU-CHEK COMFORT CURVE STRIP VI SCH ×4 (06:00→18:06)
[2021-05-30 06:15] LABS: Basophils # (auto) 0 10 ^3/uL (0-0.2); Basophils % (auto) 0.5 % (0.0-2.0); Eosinophils # (auto) 0 10 ^3/uL (0-0.8); Eosinophils % (auto) 0.6 % (0.0-7.0); Hematocrit 36.9 % (36.0-46.0); Hemoglobin 11.9 g/dL (12.2-16.2); Lymphocytes # (auto) 0.6 10 ^3/uL (0.4-5.4); Lymphocytes % (auto) 11.8 % (10.0-50.0); Mean Corpuscular Hemoglobin 27.5 pg (28.0-32.0); Mean Corpuscular Hgb Conc. 32.4 g/dL (32.0-36.0); Mean Corpuscular Volume 84.9 fL (80.0-100.0); Monocytes # (auto) 0.7 10 ^3/uL (0-1.3); Monocytes % (auto) 12.4 % (0.0-12.0); Neutrophils % (auto) 74.7 % (37.0-80.0); Nucleated Red Blood Cells % 1.9 %; Red Blood Cells 4.35 10^6/uL (4.0-5.20); White Blood Cell 5.4 10^3/uL (4.4-10.8)
[2021-05-30] MEDS: ISOSORBIDE DINITRATE 10 MG TAB PO SCH ×3 (06:21→18:00)
[2021-05-30] MEDS: InsuLIN REG 1unit/0.01ml Soln (100units/ml) SC SCH ×5 (06:23→23:37)
[2021-05-30 06:30] LABS: Red Cell Distribution Width 20.1 % (11.8-14.3)
[2021-05-30 06:35] LABS: Potassium 3.8 mmol/L (3.5-5.1)
[2021-05-30 06:37] LABS: INR 3.61 (0.9-1.15)
[2021-05-30 06:55] LABS: BUN/Creatinine Ratio 22.2; Bilirubin, Total 1.5 mg/dL (0.2-1.0); Calcium 8.1 mg/dL (8.5-10.1); Magnesium 2.6 mg/dL (1.6-2.6); Phosphorus 3.2 mg/dL (2.5-4.90); Total Protein 6.5 g/dL (6.4-8.2)
[2021-05-30] MEDS: cefTRIAXone 1GM/50ML D5W 50 ML IV SCH (08:36)
[2021-05-30 09:00] VITALS: BP 95/49
[2021-05-30] MEDS: CARVEDILOL 12.5 MG TAB PO SCH ×2 (10:00→22:00)
[2021-05-30] MEDS: ASPirin-EC 81 mg tab PO SCH (10:26)
[2021-05-30 13:00] VITALS: BP 97/62
[2021-05-30] MEDS: ONDANSETRON HCL 4 MG/2 ML VIAL IV PRN (15:47)
[2021-05-30] MEDS: HYDROmorphone HCL 2 MG/ML VL IV PRN (15:47)
[2021-05-30 17:20] VITALS: BP 101/63
[2021-05-30] MEDS ORDERED: PPN PER PHARMACY IV NR ×8 (20:00)
[2021-05-30 22:00] VITALS: BP 108/65
[2021-05-31] MEDS: ACCU-CHEK COMFORT CURVE STRIP VI SCH ×4 (00:14→17:33)
[2021-05-31] MEDS: metroNIDAZOLE 500MG/100ML 100 ML IV SCH ×3 (02:18→17:38)
[2021-05-31 05:00] VITALS: BP 105/67
[2021-05-31] MEDS: ISOSORBIDE DINITRATE 10 MG TAB PO SCH ×3 (05:13→17:24)
[2021-05-31] MEDS: ONDANSETRON HCL 4 MG/2 ML VIAL IV PRN (05:24)
[2021-05-31] MEDS: HYDROmorphone HCL 2 MG/ML VL IV PRN (05:26)
[2021-05-31] MEDS: InsuLIN REG 1unit/0.01ml Soln (100units/ml) SC SCH ×3 (05:46→17:32)
[2021-05-31 06:35] LABS: Basophils # (auto) 0 10 ^3/uL (0-0.2); Basophils % (auto) 0.8 % (0.0-2.0); Eosinophils # (auto) 0.1 10 ^3/uL (0-0.8); Hematocrit 38.3 % (36.0-46.0); Hemoglobin 12.3 g/dL (12.2-16.2); Lymphocytes # (auto) 0.5 10 ^3/uL (0.4-5.4); Lymphocytes % (auto) 10.1 % (10.0-50.0); Mean Corpuscular Hemoglobin 27.2 pg (28.0-32.0); Mean Corpuscular Hgb Conc. 32.1 g/dL (32.0-36.0); Mean Corpuscular Volume 84.6 fL (80.0-100.0); Monocytes # (auto) 0.8 10 ^3/uL (0-1.3); Neutrophils # (auto) 3.9 10 ^3/uL (1.6-8.6); Neutrophils % (auto) 73.1 % (37.0-80.0); Red Blood Cells 4.52 10^6/uL (4.0-5.20); White Blood Cell 5.3 10^3/uL (4.4-10.8)
[2021-05-31 06:54] LABS: Red Cell Distribution Width 20.1 % (11.8-14.3)
[2021-05-31 06:55] LABS: Calcium 8.4 mg/dL (8.5-10.1); Magnesium 2.6 mg/dL (1.6-2.6); Potassium 3.7 mmol/L (3.5-5.1)
[2021-05-31 06:57] LABS: BUN/Creatinine Ratio 26.9
[2021-05-31 06:59] LABS: Bilirubin, Total 1.6 mg/dL (0.2-1.0); Total Protein 6.6 g/dL (6.4-8.2)
[2021-05-31 07:21] LABS: INR 3.65 (0.9-1.15)
[2021-05-31 08:00] VITALS: BP 111/70
[2021-05-31 09:00] VITALS: BP 111/70
[2021-05-31] MEDS ORDERED: SODIUM PHOSPHATES 24 MEQ in SODIUM CHL 0.9% 100 ML IV ONE (09:30)
[2021-05-31] MEDS: cefTRIAXone 1GM/50ML D5W 50 ML IV SCH (10:36)
[2021-05-31] MEDS: CARVEDILOL 12.5 MG TAB PO SCH ×2 (10:38→21:32)
[2021-05-31] MEDS: ASPirin-EC 81 mg tab PO SCH (10:39)
[2021-05-31 13:00] VITALS: BP 104/48
[2021-05-31 17:00] VITALS: BP 98/58
[2021-05-31] MEDS ORDERED: PPN PER PHARMACY IV NR ×7 (20:00)
[2021-05-31 21:41] VITALS: BP 102/58
[2021-06-01] MEDS: ACCU-CHEK COMFORT CURVE STRIP VI SCH ×4 (00:27→18:27)
[2021-06-01] MEDS: metroNIDAZOLE 500MG/100ML 100 ML IV SCH ×3 (02:00→18:00)
[2021-06-01 04:37] VITALS: BP 102/62
[2021-06-01] MEDS: ISOSORBIDE DINITRATE 10 MG TAB PO SCH ×3 (06:00→17:28)
[2021-06-01] MEDS: InsuLIN REG 1unit/0.01ml Soln (100units/ml) SC SCH ×4 (06:28→18:28)
[2021-06-01 07:29] LABS: Albumin 2.8 g/dL (3.4-5.0); Calcium 7.9 mg/dL (8.5-10.1); Magnesium 2.4 mg/dL (1.6-2.6); Potassium 3.5 mmol/L (3.5-5.1)
[2021-06-01 07:33] LABS: BUN/Creatinine Ratio 29.2; Bilirubin, Total 1.4 mg/dL (0.2-1.0); Phosphorus 2.8 mg/dL (2.5-4.90); Total Protein 6.2 g/dL (6.4-8.2)
[2021-06-01 07:45] LABS: INR 3.14 (0.9-1.15)
[2021-06-01 08:00] VITALS: BP 128/70
[2021-06-01] MEDS ORDERED: POTASSIUM CHL 20MEQ/100ML 100 ML IV ONE (09:15)
[2021-06-01] MEDS: cefTRIAXone 1GM/50ML D5W 50 ML IV SCH (09:22)
[2021-06-01] MEDS: CARVEDILOL 12.5 MG TAB PO SCH ×2 (09:55→22:08)
[2021-06-01] MEDS: ASPirin-EC 81 mg tab PO SCH (09:55)
[2021-06-01 12:00] VITALS: BP 103/60
[2021-06-01 16:00] VITALS: BP 102/61
[2021-06-01] MEDS ORDERED: WARFARIN SODIUM 2 MG TAB PO ONE (17:00)
[2021-06-01] MEDS: FUROSEMIDE 20 MG/2 ML VIAL IV SCH (18:01)
[2021-06-01] MEDS ORDERED: PPN PER PHARMACY IV NR ×9 (20:00)
[2021-06-01 22:00] VITALS: BP 109/64
[2021-06-02] MEDS: InsuLIN REG 1unit/0.01ml Soln (100units/ml) SC SCH ×3 (00:02→12:45)
[2021-06-02] MEDS: ACCU-CHEK COMFORT CURVE STRIP VI SCH ×3 (00:02→12:45)
[2021-06-02] MEDS: metroNIDAZOLE 500MG/100ML 100 ML IV SCH ×2 (02:15→09:56)
[2021-06-02 05:00] VITALS: BP 94/59
[2021-06-02] MEDS: ISOSORBIDE DINITRATE 10 MG TAB PO SCH ×2 (06:00→12:00)
[2021-06-02] MEDS: FUROSEMIDE 20 MG/2 ML VIAL IV SCH (06:00)
[2021-06-02 07:09] LABS: Hematocrit 37.7 % (36.0-46.0); Hemoglobin 12.1 g/dL (12.2-16.2); Mean Corpuscular Hemoglobin 27.5 pg (28.0-32.0); Mean Corpuscular Volume 85.9 fL (80.0-100.0); Red Blood Cells 4.39 10^6/uL (4.0-5.20); Red Cell Distribution Width 19.9 % (11.8-14.3); White Blood Cell 5.5 10^3/uL (4.4-10.8)
[2021-06-02 07:21] LABS: INR 2.95 (0.9-1.15)
[2021-06-02 07:28] LABS: Albumin 2.8 g/dL (3.4-5.0); Calcium 7.8 mg/dL (8.5-10.1); Potassium 3.8 mmol/L (3.5-5.1)
[2021-06-02 07:31] LABS: BUN/Creatinine Ratio 33.1; Bilirubin, Total 1.5 mg/dL (0.2-1.0); Phosphorus 2.5 mg/dL (2.5-4.90); Total Protein 6.4 g/dL (6.4-8.2)
[2021-06-02 08:16] LABS: Band Neutrophils % (manual) 0; Basophils % (manual) 0 (0.0-2.0); Blast Cells 0; Metamyelocytes % 0; Myelocytes % 0; Promyelocytes % 0; Reactive Lymphocytes 0
[2021-06-02] MEDS: cefTRIAXone 1GM/50ML D5W 50 ML IV SCH (08:44)
[2021-06-02 08:52] LABS: Eosinophils % (manual) 2 (0-7); Lymphocytes % (manual) 8 (10.0-50.0); Monocytes % (manual) 16 (0-12)
[2021-06-02 09:00] VITALS: BP 101/57
[2021-06-02] MEDS: ASPirin-EC 81 mg tab PO SCH (09:49)
[2021-06-02] MEDS: CARVEDILOL 12.5 MG TAB PO SCH (09:54)
[2021-06-02 12:36] VITALS: BP 109/52
[2021-06-02 15:00] VITALS: BP 96/80
[2021-06-02] MEDS ORDERED: WARFARIN SODIUM 2 MG TAB PO ONE (17:00)
== END 2021-06-02 15:47 | DRG 444 ==
LOC: ER 18:36 → TELE 05-26 02:04 → TELE-WESTW 05-26 03:24
PROVIDERS: ADMIT Internal Medicine; ATTEND Internal Medicine
DX: K80.00 Calculus of gallbladder with acute cholecystitis without obstruction (principal); I21.4 Non-ST elevation (NSTEMI) myocardial infarction; N17.0 Acute kidney failure with tubular necrosis; I50.23 Acute on chronic systolic (congestive) heart failure; I13.0 Hypertensive heart and chronic kidney disease with heart failure and stage 1 through stage 4 chronic kidney disease, or unspecified chronic kidney disease; N39.0 Urinary tract infection, site not specified; R18.8 Other ascites; I25.10 Atherosclerotic heart disease of native coronary artery without angina pectoris; I25.5 Ischemic cardiomyopathy; I95.9 Hypotension, unspecified; N18.31 Chronic kidney disease, stage 3a; I48.91 Unspecified atrial fibrillation; K21.9 Gastro-esophageal reflux disease without esophagitis; D63.8 Anemia in other chronic diseases classified elsewhere; E78.5 Hyperlipidemia, unspecified; Z20.822 Contact with and (suspected) exposure to COVID-19; E11.51 Type 2 diabetes mellitus with diabetic peripheral angiopathy without gangrene; E83.39 Other disorders of phosphorus metabolism; E11.22 Type 2 diabetes mellitus with diabetic chronic kidney disease; E88.09 Other disorders of plasma-protein metabolism, not elsewhere classified; J44.9 Chronic obstructive pulmonary disease, unspecified; Z53.29 Procedure and treatment not carried out because of patient's decision for other reasons; Z80.9 Family history of malignant neoplasm, unspecified; Z95.810 Presence of automatic (implantable) cardiac defibrillator; Z79.01 Long term (current) use of anticoagulants; Z82.49 Family history of ischemic heart disease and other diseases of the circulatory system; Z83.3 Family history of diabetes mellitus; Z95.1 Presence of aortocoronary bypass graft; Z95.2 Presence of prosthetic heart valve; Z98.61 Coronary angioplasty status; I25.2 Old myocardial infarction
CPT/HCPCS: 36415; 76775; 80053; 81001; 82040; 82378; 82962; 83605; 83690; 83735; 83880; 84100; 84478; 84484; 84550; 85007; 85025; 85027; 85610; 85730; 86300; 86301; 86304; 87081; 87086; 93005; 97116; 97163; 97530; G0378; J0690; J0696; J1815; J2405; J3480; J3490; J7131

== ENCOUNTER 2021-06-09 22:11 | Inpatient (IN) | payer MEDICARE ==
[~2021-06-09] VITALS: Ht 162.6 cm; Wt 70.2 kg
[2021-06-09 23:32] LABS: Basophils # (auto) 0.1 10 ^3/uL (0-0.2); Eosinophils # (auto) 0 10 ^3/uL (0-0.8); Eosinophils % (auto) 0.6 % (0.0-7.0); Hematocrit 38.1 % (36.0-46.0); Hemoglobin 11.9 g/dL (12.2-16.2); Lymphocytes # (auto) 0.2 10 ^3/uL (0.4-5.4); Lymphocytes % (auto) 2.5 % (10.0-50.0); Mean Corpuscular Hemoglobin 27.2 pg (28.0-32.0); Mean Corpuscular Hgb Conc. 31.2 g/dL (32.0-36.0); Mean Corpuscular Volume 87.3 fL (80.0-100.0); Monocytes # (auto) 0.5 10 ^3/uL (0-1.3); Monocytes % (auto) 6.5 % (0.0-12.0); Neutrophils # (auto) 6.4 10 ^3/uL (1.6-8.6); Neutrophils % (auto) 88.4 % (37.0-80.0); Nucleated Red Blood Cells % 0.3 %; Red Blood Cells 4.37 10^6/uL (4.0-5.20); Red Cell Distribution Width 21.1 % (11.8-14.3); White Blood Cell 7.2 10^3/uL (4.4-10.8)
[2021-06-09 23:38] LABS: Amphetamine Screen, Urine NEGATIVE (NEGATIVE); Barbiturate Scree,Urine NEGATIVE (NEGATIVE); Benzodiazephine Screen, Urine NEGATIVE (NEGATIVE); Cannabinoid Screen, Urine NEGATIVE (NEGATIVE); Cocaine Screen, Urine NEGATIVE (NEGATIVE); Opiate Scree,Urine NEGATIVE (NEGATIVE); Phencyclidine Screen, Urine NEGATIVE (NEGATIVE)
[2021-06-09 23:40] LABS: Albumin 2.7 g/dL (3.4-5.0); Calcium 8.3 mg/dL (8.5-10.1); Potassium 5.4 mmol/L (3.5-5.1)
[2021-06-09 23:40] LABS: Urine Bacteria FEW /hpf (None Seen); Urine Blood Negative /uL (Negative); Urine Hyaline Cast FEW /lpf (0 - 2); Urine Specific Gravity 1.016 (1.001-1.035); Urine WBC 2 /hpf (0 - 5)
[2021-06-09 23:42] LABS: BUN/Creatinine Ratio 23.3
[2021-06-09 23:47] LABS: Bilirubin, Total 1.7 mg/dL (0.2-1.0); Total Protein 6.6 g/dL (6.4-8.2)
[2021-06-10] MEDS ORDERED: ONDANSETRON HCL 4 MG/2 ML VIAL IV PRN (05:45)
[2021-06-10] MEDS ORDERED: ACETAMINOPHEN 325 MG TAB PO PRN (05:45)
[2021-06-10] MEDS ORDERED: FUROSEMIDE 40 MG/4 ML VIAL IV ONE ×3 (05:45→23:30)
[2021-06-10] MEDS ORDERED: DOCUSATE SOD 100 MG CAP PO PRN (05:45)
[2021-06-10] MEDS ORDERED: SODIUM ZIRCONIUM CYCL 10 GM PAK PO ONE ×2 (05:45→22:00)
[2021-06-10] MEDS: SODIUM CHLOR 0.9% PF (SALINE LOCK) 10ML VIAL/SYR IV SCH ×3 (06:28→22:00)
[2021-06-10] MEDS ORDERED: NITROGLYCERIN 0.4 MG SL TAB SL PRN (06:30)
[2021-06-10] MEDS ORDERED: MORPHINE SULFATE INJECTION 2 MG/ML SYRG IV PRN (06:30)
[2021-06-10 07:02] LABS: Albumin 2.3 g/dL (3.4-5.0); Calcium 7.6 mg/dL (8.5-10.1)
[2021-06-10 07:09] LABS: BUN/Creatinine Ratio 25.6; Bilirubin, Total 1.6 mg/dL (0.2-1.0); Total Protein 6.2 g/dL (6.4-8.2)
[2021-06-10 07:29] LABS: Potassium 5.7 mmol/L (3.5-5.1)
[2021-06-10 07:36] LABS: Basophils # (auto) 0.1 10 ^3/uL (0-0.2); Eosinophils # (auto) 0 10 ^3/uL (0-0.8); Eosinophils % (auto) 0.6 % (0.0-7.0); Hematocrit 38.3 % (36.0-46.0); Hemoglobin 12.2 g/dL (12.2-16.2); Lymphocytes # (auto) 0.1 10 ^3/uL (0.4-5.4); Mean Corpuscular Hemoglobin 27.7 pg (28.0-32.0); Mean Corpuscular Volume 86.7 fL (80.0-100.0); Monocytes # (auto) 0.5 10 ^3/uL (0-1.3); Monocytes % (auto) 6.2 % (0.0-12.0); Neutrophils # (auto) 6.7 10 ^3/uL (1.6-8.6); Neutrophils % (auto) 89.2 % (37.0-80.0); Nucleated Red Blood Cells % 0.3 %; Red Blood Cells 4.42 10^6/uL (4.0-5.20); White Blood Cell 7.5 10^3/uL (4.4-10.8)
[2021-06-10 07:38] LABS: Red Cell Distribution Width 20.9 % (11.8-14.3)
[2021-06-10 09:43] LABS: INR 7.66 (0.9-1.15)
[2021-06-10 10:00] VITALS: BP 110/72
[2021-06-10] MEDS: FAMOTIDINE (10MG/ML) 2ML VL IV SCH (10:19)
[2021-06-10] MEDS: ASPirin 81 mg TAB PO SCH (10:19)
[2021-06-10] MEDS: FUROSEMIDE 40 MG/4 ML VIAL IV SCH (10:19)
[2021-06-10] MEDS: CARVEDILOL 12.5 MG TAB PO SCH ×2 (10:20→22:00)
[2021-06-10 13:00] VITALS: BP 98/54
[2021-06-10 14:22] VITALS: BP 121/65
[2021-06-10 17:00] VITALS: BP 103/55
[2021-06-10] MEDS: HYDROcodone-ACET 5/325MG TAB PO PRN (17:58)
[2021-06-10] MEDS ORDERED: DEXTROSE (50%) 50ML SYRG IV ONE (19:30)
[2021-06-10] MEDS ORDERED: InsuLIN REG 1unit/0.01ml Soln (100units/ml) IV ONE (19:30)
[2021-06-10] MEDS ORDERED: CALCIUM GLUC 1,000mg/50ml-NS 50 ML IV ONE (19:30)
[2021-06-10 22:00] VITALS: BP 106/51
[2021-06-10] MEDS: ATORVASTATIN 20 MG TAB PO SCH (22:00)
[2021-06-10 22:04] LABS: Anion Gap 7 (5-15); Blood Urea Nitrogen 33 mg/dL (7-18); Calcium 7.8 mg/dL (8.5-10.1); Carbon Dioxide 23 mmol/L (21-32); Chloride 106 mmol/L (98-107); Glucose 165 mg/dL (74-106); Sodium 136 mmol/L (136-145)
[2021-06-10 22:07] LABS: BUN/Creatinine Ratio 21.9; GFR African American 43 mL/min; GFR Non-African American 36 mL/min
[2021-06-10] MEDS ORDERED: ALBUTEROL SULF 2.5 MG/0.5ML(0.5%) NEB SOLN NEB ONE (23:30)
[2021-06-10] MEDS ORDERED: SODIUM BICARBONATE 8.4 % INJ 50ML VIAL IV ONE (23:30)
[2021-06-11] MEDS: HYDROcodone-ACET 5/325MG TAB PO PRN (00:10)
[2021-06-11] MEDS: SODIUM ZIRCONIUM CYCL 10 GM PAK PO SCH ×4 (00:14→22:21)
[2021-06-11 05:00] VITALS: BP 84/45
[2021-06-11] MEDS: SODIUM CHLOR 0.9% PF (SALINE LOCK) 10ML VIAL/SYR IV SCH ×3 (06:10→22:20)
[2021-06-11 07:11] LABS: Albumin 2.4 g/dL (3.4-5.0); Calcium 8.4 mg/dL (8.5-10.1); Potassium 5.3 mmol/L (3.5-5.1)
[2021-06-11 07:14] LABS: BUN/Creatinine Ratio 22.9
[2021-06-11 07:16] LABS: Bilirubin, Total 1.7 mg/dL (0.2-1.0); Total Protein 6.6 g/dL (6.4-8.2)
[2021-06-11 07:19] LABS: Basophils # (auto) 0.1 10 ^3/uL (0-0.2); Basophils % (auto) 0.6 % (0.0-2.0); Eosinophils # (auto) 0.1 10 ^3/uL (0-0.8); Hematocrit 37.2 % (36.0-46.0); Hemoglobin 12.1 g/dL (12.2-16.2); Lymphocytes # (auto) 0.2 10 ^3/uL (0.4-5.4); Lymphocytes % (auto) 2.2 % (10.0-50.0); Mean Corpuscular Hemoglobin 27.8 pg (28.0-32.0); Mean Corpuscular Hgb Conc. 32.6 g/dL (32.0-36.0); Mean Corpuscular Volume 85.5 fL (80.0-100.0); Monocytes # (auto) 1.2 10 ^3/uL (0-1.3); Monocytes % (auto) 12.5 % (0.0-12.0); Neutrophils # (auto) 8.1 10 ^3/uL (1.6-8.6); Neutrophils % (auto) 83.7 % (37.0-80.0); Nucleated Red Blood Cells % 0.4 %; Red Blood Cells 4.35 10^6/uL (4.0-5.20); White Blood Cell 9.6 10^3/uL (4.4-10.8)
[2021-06-11 07:33] LABS: Red Cell Distribution Width 20.5 % (11.8-14.3)
[2021-06-11 08:37] LABS: INR > 8.0 (0.9-1.15)
[2021-06-11 09:00] VITALS: BP 99/59
[2021-06-11] MEDS ORDERED: PHYTONADIONE(VitK) ORAL Susp 10mg/10ml(1mg/ml) PO ONE (09:00)
[2021-06-11] MEDS: FAMOTIDINE (10MG/ML) 2ML VL IV SCH (10:12)
[2021-06-11] MEDS: CARVEDILOL 12.5 MG TAB PO SCH ×2 (10:13→22:21)
[2021-06-11] MEDS: ASPirin 81 mg TAB PO SCH (10:51)
[2021-06-11 11:03] VITALS: BP 109/67
[2021-06-11] MEDS: FUROSEMIDE 40 MG/4 ML VIAL IV SCH ×3 (11:19→22:20)
[2021-06-11 13:00] VITALS: BP 109/67
[2021-06-11] MEDS: ALBUMIN 25% 50 ML IV SCH ×2 (14:28→22:20)
[2021-06-11] MEDS: DOPamine 1600MCG/ML D5W 250 ML IV SCH (15:27)
[2021-06-11 17:00] VITALS: BP 95/55
[2021-06-11 22:00] VITALS: BP 121/67
[2021-06-11] MEDS: ATORVASTATIN 20 MG TAB PO SCH (22:20)
[2021-06-12 05:00] VITALS: BP 117/66
[2021-06-12] MEDS: ALBUMIN 25% 50 ML IV SCH (05:00)
[2021-06-12] MEDS: FUROSEMIDE 100 MG/10ML VIAL IV SCH ×2 (05:00→18:20)
[2021-06-12] MEDS: SODIUM CHLOR 0.9% PF (SALINE LOCK) 10ML VIAL/SYR IV SCH ×3 (05:04→22:04)
[2021-06-12] MEDS: SODIUM ZIRCONIUM CYCL 10 GM PAK PO SCH (05:04)
[2021-06-12 06:19] LABS: Basophils # (auto) 0 10 ^3/uL (0-0.2); Basophils % (auto) 0.5 % (0.0-2.0); Eosinophils # (auto) 0.1 10 ^3/uL (0-0.8); Eosinophils % (auto) 0.8 % (0.0-7.0); Hematocrit 35.3 % (36.0-46.0); Hemoglobin 11.7 g/dL (12.2-16.2); Lymphocytes # (auto) 0.2 10 ^3/uL (0.4-5.4); Lymphocytes % (auto) 2.1 % (10.0-50.0); Mean Corpuscular Hemoglobin 28.2 pg (28.0-32.0); Mean Corpuscular Hgb Conc. 33.1 g/dL (32.0-36.0); Mean Corpuscular Volume 85.1 fL (80.0-100.0); Monocytes # (auto) 0.8 10 ^3/uL (0-1.3); Monocytes % (auto) 9.3 % (0.0-12.0); Neutrophils # (auto) 7.2 10 ^3/uL (1.6-8.6); Neutrophils % (auto) 87.3 % (37.0-80.0); Nucleated Red Blood Cells % 0.2 %; Red Blood Cells 4.15 10^6/uL (4.0-5.20); White Blood Cell 8.3 10^3/uL (4.4-10.8)
[2021-06-12 06:30] LABS: Red Cell Distribution Width 20.2 % (11.8-14.3)
[2021-06-12 06:31] LABS: Calcium 8.3 mg/dL (8.5-10.1); Potassium 4.3 mmol/L (3.5-5.1)
[2021-06-12 06:32] LABS: INR 2.22 (0.9-1.15); Partial Thromboplastin Time 46.9 sec (23.6-33.0)
[2021-06-12 06:33] LABS: BUN/Creatinine Ratio 25.6
[2021-06-12] MEDS: FAMOTIDINE (10MG/ML) 2ML VL IV SCH (08:50)
[2021-06-12] MEDS: FUROSEMIDE 40 MG/4 ML VIAL IV SCH ×2 (08:50→22:03)
[2021-06-12] MEDS: ASPirin 81 mg TAB PO SCH (08:50)
[2021-06-12] MEDS: CARVEDILOL 12.5 MG TAB PO SCH ×2 (08:51→22:04)
[2021-06-12 08:56] VITALS: BP 112/47
[2021-06-12 12:45] VITALS: BP 131/60
[2021-06-12 13:03] VITALS: BP 107/53
[2021-06-12 15:18] LABS: Protein, Urine 26.1 mg/dL (0.0-11.9)
[2021-06-12] MEDS: DOPamine 1600MCG/ML D5W 250 ML IV SCH (16:51)
[2021-06-12 17:00] VITALS: BP 122/51
[2021-06-12] MEDS ORDERED: WARFARIN SODIUM 1 MG TAB PO ONE (17:00)
[2021-06-12 22:00] VITALS: BP 107/64
[2021-06-12] MEDS: ATORVASTATIN 20 MG TAB PO SCH (22:04)
[2021-06-13] VITALS (7 sets, daily range): BP systolic 90–126; BP diastolic 47–81
[2021-06-13] MEDS: SODIUM CHLOR 0.9% PF (SALINE LOCK) 10ML VIAL/SYR IV SCH ×3 (06:22→23:00)
[2021-06-13] MEDS: FUROSEMIDE 100 MG/10ML VIAL IV SCH (06:23)
[2021-06-13 09:20] LABS: Basophils # (auto) 0 10 ^3/uL (0-0.2); Basophils % (auto) 0.3 % (0.0-2.0); Eosinophils # (auto) 0.1 10 ^3/uL (0-0.8); Eosinophils % (auto) 0.8 % (0.0-7.0); Hemoglobin 11.4 g/dL (12.2-16.2); Lymphocytes # (auto) 0.3 10 ^3/uL (0.4-5.4); Lymphocytes % (auto) 3.7 % (10.0-50.0); Mean Corpuscular Hemoglobin 27.7 pg (28.0-32.0); Mean Corpuscular Hgb Conc. 32.6 g/dL (32.0-36.0); Mean Corpuscular Volume 85.1 fL (80.0-100.0); Monocytes # (auto) 0.7 10 ^3/uL (0-1.3); Monocytes % (auto) 10.1 % (0.0-12.0); Neutrophils # (auto) 6.3 10 ^3/uL (1.6-8.6); Neutrophils % (auto) 85.1 % (37.0-80.0); Nucleated Red Blood Cells % 0.1 %; Red Blood Cells 4.11 10^6/uL (4.0-5.20); White Blood Cell 7.4 10^3/uL (4.4-10.8)
[2021-06-13] MEDS: FAMOTIDINE (10MG/ML) 2ML VL IV SCH (09:21)
[2021-06-13] MEDS: ASPirin 81 mg TAB PO SCH (09:22)
[2021-06-13] MEDS: CARVEDILOL 12.5 MG TAB PO SCH ×2 (09:22→23:14)
[2021-06-13 09:44] LABS: Calcium 8.2 mg/dL (8.5-10.1); Potassium 4.5 mmol/L (3.5-5.1)
[2021-06-13] MEDS ORDERED: PANT40T PO (10:27)
[2021-06-13 10:49] LABS: INR 1.98 (0.9-1.15); Partial Thromboplastin Time 41.1 sec (23.6-33.0)
[2021-06-13] MEDS: HYDROcodone-ACET 5/325MG TAB PO PRN (12:38)
[2021-06-13] MEDS ORDERED: WARFARIN SODIUM 2 MG TAB PO ONE (17:00)
[2021-06-13] MEDS: ATORVASTATIN 20 MG TAB PO SCH (22:55)
[2021-06-14 05:00] VITALS: BP 108/59
[2021-06-14 06:00] LABS: Basophils # (auto) 0.1 10 ^3/uL (0-0.2); Basophils % (auto) 0.9 % (0.0-2.0); Eosinophils # (auto) 0.1 10 ^3/uL (0-0.8); Eosinophils % (auto) 1.3 % (0.0-7.0); Hematocrit 35.9 % (36.0-46.0); Hemoglobin 11.8 g/dL (12.2-16.2); Lymphocytes # (auto) 0.3 10 ^3/uL (0.4-5.4); Lymphocytes % (auto) 3.6 % (10.0-50.0); Mean Corpuscular Hemoglobin 27.8 pg (28.0-32.0); Mean Corpuscular Hgb Conc. 32.9 g/dL (32.0-36.0); Mean Corpuscular Volume 84.4 fL (80.0-100.0); Monocytes # (auto) 0.7 10 ^3/uL (0-1.3); Monocytes % (auto) 7.9 % (0.0-12.0); Neutrophils # (auto) 7.1 10 ^3/uL (1.6-8.6); Neutrophils % (auto) 86.3 % (37.0-80.0); Nucleated Red Blood Cells % 0.1 %; Red Blood Cells 4.26 10^6/uL (4.0-5.20); Red Cell Distribution Width 19.4 % (11.8-14.3); White Blood Cell 8.3 10^3/uL (4.4-10.8)
[2021-06-14] MEDS: SODIUM CHLOR 0.9% PF (SALINE LOCK) 10ML VIAL/SYR IV SCH ×3 (06:28→22:00)
[2021-06-14 08:00] VITALS: BP 116/64
[2021-06-14 10:02] LABS: Calcium 8.3 mg/dL (8.5-10.1); INR 2.53 (0.9-1.15); Potassium 3.8 mmol/L (3.5-5.1)
[2021-06-14 10:05] LABS: BUN/Creatinine Ratio 26.1
[2021-06-14] MEDS: FAMOTIDINE (10MG/ML) 2ML VL IV SCH (10:33)
[2021-06-14] MEDS: ASPirin 81 mg TAB PO SCH (10:33)
[2021-06-14] MEDS: CARVEDILOL 12.5 MG TAB PO SCH ×2 (10:35→22:48)
[2021-06-14] MEDS: FUROSEMIDE 20 MG TAB PO SCH (10:36)
[2021-06-14 12:00] VITALS: BP 102/52
[2021-06-14 16:00] VITALS: BP 102/61
[2021-06-14 22:00] VITALS: BP 103/52
[2021-06-14] MEDS: ATORVASTATIN 20 MG TAB PO SCH (22:46)
[2021-06-15 05:00] VITALS: BP 115/61
[2021-06-15] MEDS: HYDROcodone-ACET 5/325MG TAB PO PRN (05:02)
[2021-06-15 06:07] LABS: Basophils # (auto) 0.1 10 ^3/uL (0-0.2); Basophils % (auto) 1.2 % (0.0-2.0); Eosinophils # (auto) 0.1 10 ^3/uL (0-0.8); Hematocrit 33.4 % (36.0-46.0); Hemoglobin 11.1 g/dL (12.2-16.2); Lymphocytes # (auto) 0.3 10 ^3/uL (0.4-5.4); Lymphocytes % (auto) 4.4 % (10.0-50.0); Mean Corpuscular Hemoglobin 27.8 pg (28.0-32.0); Mean Corpuscular Hgb Conc. 33.1 g/dL (32.0-36.0); Monocytes # (auto) 0.8 10 ^3/uL (0-1.3); Monocytes % (auto) 10.4 % (0.0-12.0); Neutrophils # (auto) 6.1 10 ^3/uL (1.6-8.6); Nucleated Red Blood Cells % 0.2 %; Red Blood Cells 3.98 10^6/uL (4.0-5.20); Red Cell Distribution Width 18.9 % (11.8-14.3); White Blood Cell 7.3 10^3/uL (4.4-10.8)
[2021-06-15 06:13] LABS: INR 2.74 (0.9-1.15); Partial Thromboplastin Time 41.3 sec (23.6-33.0)
[2021-06-15] MEDS: SODIUM CHLOR 0.9% PF (SALINE LOCK) 10ML VIAL/SYR IV SCH ×2 (06:17→14:09)
[2021-06-15] MEDS ORDERED: POLYETHYLENE GLYCOL 17 GM PWDR PO PRN (06:30)
[2021-06-15] MEDS: POLYETHYLENE GLYCOL 17 GM PWDR PO SCH ×2 (06:41→10:48)
[2021-06-15 08:58] VITALS: BP 120/69
[2021-06-15] MEDS ORDERED: FLEET ENEMA(ADULT) 135 ML PR ONE (09:00)
[2021-06-15] MEDS ORDERED: POLYETHYLENE GLYCOL 17 GM PWDR PO SCH (10:00)
[2021-06-15] MEDS ORDERED: SENNA 8.6 MG TAB PO ONE (10:45)
[2021-06-15] MEDS: FAMOTIDINE (10MG/ML) 2ML VL IV SCH (10:46)
[2021-06-15] MEDS: ASPirin 81 mg TAB PO SCH (10:46)
[2021-06-15] MEDS: FUROSEMIDE 20 MG TAB PO SCH (10:47)
[2021-06-15] MEDS: CARVEDILOL 12.5 MG TAB PO SCH (10:47)
[2021-06-15 13:00] VITALS: BP 123/87
[2021-06-15 17:00] VITALS: BP 101/52
[2021-06-16] MEDS ORDERED: FUROSEMIDE 20 MG TAB PO SCH (10:00)
== END 2021-06-15 19:00 | DRG 291 ==
LOC: EDBD 22:11 → ER 22:15 → TELE 06-10 06:18 → TELE-EAST 06-10 09:01
PROVIDERS: ADMIT Nurse Practitioner Family; ATTEND Internal Medicine Pulmonary Disease
DX: I13.0 Hypertensive heart and chronic kidney disease with heart failure and stage 1 through stage 4 chronic kidney disease, or unspecified chronic kidney disease (principal); I50.23 Acute on chronic systolic (congestive) heart failure; N17.0 Acute kidney failure with tubular necrosis; I25.5 Ischemic cardiomyopathy; E87.5 Hyperkalemia; E88.09 Other disorders of plasma-protein metabolism, not elsewhere classified; I48.91 Unspecified atrial fibrillation; K21.9 Gastro-esophageal reflux disease without esophagitis; D63.1 Anemia in chronic kidney disease; I25.10 Atherosclerotic heart disease of native coronary artery without angina pectoris; N18.9 Chronic kidney disease, unspecified; Z20.822 Contact with and (suspected) exposure to COVID-19; E78.5 Hyperlipidemia, unspecified; E11.22 Type 2 diabetes mellitus with diabetic chronic kidney disease; J45.909 Unspecified asthma, uncomplicated; R79.89 Other specified abnormal findings of blood chemistry; I25.2 Old myocardial infarction; J44.9 Chronic obstructive pulmonary disease, unspecified; Z95.810 Presence of automatic (implantable) cardiac defibrillator; Z95.1 Presence of aortocoronary bypass graft; Z79.01 Long term (current) use of anticoagulants
CPT/HCPCS: 36415; 71045; 80048; 80053; 80061; 80307; 81001; 82570; 82962; 83036; 83605; 83880; 84156; 84300; 84484; 85025; 85610; 85730; 93005; 93971; 94640; 96374; G0378; J1815; J3490

== ENCOUNTER 2021-07-12 18:02 | Inpatient (IN) | payer MEDICARE ==
[~2021-07-12] VITALS: Ht 162.6 cm; Wt 71.7 kg
[~2021-07-12 18:02] MED LIST changes: -PANT1INJ3 PO; +PANT40T PO
[2021-07-12] MEDS ORDERED: SODIUM CHLORIDE 0.9% 1,000 ML IV ONE (19:45)
[2021-07-12 20:41] LABS: Basophils # (auto) 0 10 ^3/uL (0-0.2); Basophils % (auto) 0.2 % (0.0-2.0); Eosinophils # (auto) 0.1 10 ^3/uL (0-0.8); Eosinophils % (auto) 1.6 % (0.0-7.0); Hematocrit 37.4 % (36.0-46.0); Lymphocytes # (auto) 0.4 10 ^3/uL (0.4-5.4); Lymphocytes % (auto) 7.2 % (10.0-50.0); Mean Corpuscular Hemoglobin 26.9 pg (28.0-32.0); Mean Corpuscular Hgb Conc. 32.1 g/dL (32.0-36.0); Mean Corpuscular Volume 83.8 fL (80.0-100.0); Monocytes # (auto) 0.7 10 ^3/uL (0-1.3); Monocytes % (auto) 11.7 % (0.0-12.0); Neutrophils # (auto) 4.8 10 ^3/uL (1.6-8.6); Neutrophils % (auto) 79.3 % (37.0-80.0); Nucleated Red Blood Cells % 0.2 %; Red Blood Cells 4.46 10^6/uL (4.0-5.20)
[2021-07-12 20:48] LABS: INR 3.92 (0.9-1.15); Partial Thromboplastin Time 43.1 sec (23.6-33.0)
[2021-07-12 20:53] LABS: Albumin 2.5 g/dL (3.4-5.0); BUN/Creatinine Ratio 15.6; Calcium 8.2 mg/dL (8.5-10.1); Magnesium 2.3 mg/dL (1.6-2.6); Potassium 4.2 mmol/L (3.5-5.1)
[2021-07-12 21:06] LABS: Bilirubin, Total 1.9 mg/dL (0.2-1.0); Total Protein 6.5 g/dL (6.4-8.2)
[2021-07-12] MEDS ORDERED: FUROSEMIDE 40 MG/4 ML VIAL IV ONE (21:45)
[2021-07-12] MEDS ORDERED: SPIRONOLACTONE 25 MG TAB PO ONE (21:45)
[2021-07-12] MEDS ORDERED: ONDANSETRON HCL 4 MG/2 ML VIAL IV PRN (22:30)
[2021-07-12] MEDS ORDERED: CIPROFLOXACIN HCL 500 MG TAB PO ONE (22:30)
[2021-07-12] MEDS ORDERED: NITROGLYCERIN 0.4 MG SL TAB SL PRN (22:30)
[2021-07-12] MEDS ORDERED: MORPHINE SULFATE INJECTION 2 MG/ML SYRG IV PRN (22:30)
[2021-07-12] MEDS ORDERED: FUROSEMIDE 40 MG/4 ML VIAL IV SCH (22:37)
[2021-07-12] MEDS ORDERED: CARVEDILOL 12.5 MG TAB PO SCH (22:40)
[2021-07-12 23:38] LABS: Urine Bacteria FEW /hpf (None Seen); Urine Blood Negative /uL (Negative); Urine Hyaline Cast MOD /lpf (0 - 2); Urine WBC 10 /hpf (0 - 5)
[2021-07-13] MEDS ORDERED: DEXTROSE (50%) 50ML SYRG IV PRN (00:15)
[2021-07-13] MEDS: ATORVASTATIN 20 MG TAB PO SCH ×2 (01:26→21:57)
[2021-07-13 03:23] VITALS: BP 116/64
[2021-07-13] MEDS: HEPARIN SODIUM (PORCINE) 5000 UNITS/ML 1ML VIAL SC SCH ×3 (06:00→21:56)
[2021-07-13] MEDS: SODIUM CHLOR 0.9% PF (SALINE LOCK) 10ML VIAL/SYR IV SCH ×3 (06:35→21:57)
[2021-07-13] MEDS: ACCU-CHEK COMFORT CURVE STRIP VI SCH ×4 (07:11→21:46)
[2021-07-13] MEDS: InsuLIN REG 1unit/0.01ml Soln (100units/ml) SC SCH ×4 (07:13→21:53)
[2021-07-13] MEDS ORDERED: FUROSEMIDE 100 MG/10ML VIAL IV SCH (08:50)
[2021-07-13] MEDS ORDERED: ASCORBIC ACID 500 MG TAB PO SCH (10:00)
[2021-07-13] MEDS: FERROUS SULFATE 325mg EC TAB PO SCH ×2 (10:00→17:16)
[2021-07-13] MEDS: ASPirin-EC 81 mg tab PO SCH (10:00)
[2021-07-13] MEDS: AMIODARONE HCL 200 MG TAB PO SCH (10:00)
[2021-07-13] MEDS: SACUBITRIL-VALSARTAN 24mg/26mg TAB PO SCH ×2 (10:00→22:00)
[2021-07-13] MEDS: PANTOPRAZOLE 40 MG TAB PO SCH (10:00)
[2021-07-13] MEDS: MULTIPLE VITAMIN TAB PO SCH (10:00)
[2021-07-13] MEDS: DOCUSATE SOD 100 MG CAP PO SCH (10:00)
[2021-07-13 10:19] LABS: INR 3.84 (0.9-1.15); Partial Thromboplastin Time 45.2 sec (23.6-33.0)
[2021-07-13] MEDS ORDERED: TRAM50TA2 PO (12:35)
[2021-07-13] MEDS ORDERED: ERTAPENEM SOD INJ 0.5 GM in SODIUM CHL 0.9% 50 ML IV ONE (12:45)
[2021-07-13 16:57] VITALS: BP 103/67
[2021-07-13] MEDS: FUROSEMIDE 100 MG/10ML VIAL IV SCH (17:15)
[2021-07-13] MEDS: traMADol HCL 50 MG TAB PO PRN (19:44)
[2021-07-13] MEDS: CARVEDILOL 12.5 MG TAB PO SCH (22:00)
[2021-07-13 23:25] VITALS: BP 88/55
[2021-07-14 05:15] VITALS: BP 89/47
[2021-07-14] MEDS: SODIUM CHLOR 0.9% PF (SALINE LOCK) 10ML VIAL/SYR IV SCH ×3 (06:29→21:50)
[2021-07-14] MEDS: FUROSEMIDE 100 MG/10ML VIAL IV SCH ×2 (06:29→18:14)
[2021-07-14] MEDS: ACCU-CHEK COMFORT CURVE STRIP VI SCH ×4 (06:30→21:58)
[2021-07-14] MEDS: HEPARIN SODIUM (PORCINE) 5000 UNITS/ML 1ML VIAL SC SCH ×3 (06:30→21:56)
[2021-07-14] MEDS: InsuLIN REG 1unit/0.01ml Soln (100units/ml) SC SCH ×4 (06:31→21:57)
[2021-07-14 07:19] LABS: Basophils # (auto) 0 10 ^3/uL (0-0.2); Basophils % (auto) 0.7 % (0.0-2.0); Eosinophils # (auto) 0.1 10 ^3/uL (0-0.8); Eosinophils % (auto) 2.5 % (0.0-7.0); Hematocrit 40.6 % (36.0-46.0); Hemoglobin 13.1 g/dL (12.2-16.2); Lymphocytes # (auto) 0.4 10 ^3/uL (0.4-5.4); Lymphocytes % (auto) 8.6 % (10.0-50.0); Mean Corpuscular Hemoglobin 27.1 pg (28.0-32.0); Mean Corpuscular Hgb Conc. 32.2 g/dL (32.0-36.0); Mean Corpuscular Volume 84.2 fL (80.0-100.0); Monocytes # (auto) 0.7 10 ^3/uL (0-1.3); Monocytes % (auto) 13.4 % (0.0-12.0); Neutrophils # (auto) 3.8 10 ^3/uL (1.6-8.6); Neutrophils % (auto) 74.8 % (37.0-80.0); Nucleated Red Blood Cells % 0.4 %; Red Blood Cells 4.83 10^6/uL (4.0-5.20); White Blood Cell 5.1 10^3/uL (4.4-10.8)
[2021-07-14 07:27] LABS: INR 3.72 (0.9-1.15); Partial Thromboplastin Time 48.4 sec (23.6-33.0)
[2021-07-14 07:48] LABS: Calcium 7.9 mg/dL (8.5-10.1); Potassium 3.8 mmol/L (3.5-5.1)
[2021-07-14 07:51] LABS: BUN/Creatinine Ratio 14.4
[2021-07-14 09:00] VITALS: BP 90/50
[2021-07-14] MEDS: DOCUSATE SOD 100 MG CAP PO SCH (09:48)
[2021-07-14] MEDS: FERROUS SULFATE 325mg EC TAB PO SCH ×2 (09:48→18:13)
[2021-07-14] MEDS: PANTOPRAZOLE 40 MG TAB PO SCH (09:48)
[2021-07-14] MEDS: SACUBITRIL-VALSARTAN 24mg/26mg TAB PO SCH ×2 (09:48→21:51)
[2021-07-14] MEDS: MULTIPLE VITAMIN TAB PO SCH (09:48)
[2021-07-14] MEDS: ASPirin-EC 81 mg tab PO SCH (09:48)
[2021-07-14] MEDS: traMADol HCL 50 MG TAB PO PRN (09:48)
[2021-07-14] MEDS: AMIODARONE HCL 200 MG TAB PO SCH (09:48)
[2021-07-14] MEDS: CARVEDILOL 12.5 MG TAB PO SCH ×2 (09:54→21:51)
[2021-07-14] MEDS: ERTAPENEM SOD INJ 0.5 GM in SODIUM CHL 0.9% 50 ML IV SCH (09:57)
[2021-07-14] MEDS ORDERED: PHYTONADIONE(VitK) ORAL Susp 5mg/5ml(1mg/ml) PO ONE (10:30)
[2021-07-14 13:22] VITALS: BP 111/51
[2021-07-14 16:45] VITALS: BP 98/59
[2021-07-14] MEDS: ATORVASTATIN 20 MG TAB PO SCH (21:51)
[2021-07-14 22:00] VITALS: BP 96/52
[2021-07-15 05:00] VITALS: BP 101/62
[2021-07-15 05:56] LABS: INR 2.07 (0.9-1.15); Partial Thromboplastin Time 40.8 sec (23.6-33.0)
[2021-07-15] MEDS: SODIUM CHLOR 0.9% PF (SALINE LOCK) 10ML VIAL/SYR IV SCH ×3 (06:15→21:10)
[2021-07-15] MEDS: HEPARIN SODIUM (PORCINE) 5000 UNITS/ML 1ML VIAL SC SCH ×3 (06:28→21:12)
[2021-07-15] MEDS: FUROSEMIDE 100 MG/10ML VIAL IV SCH ×2 (06:30→17:41)
[2021-07-15] MEDS: ACCU-CHEK COMFORT CURVE STRIP VI SCH ×2 (06:30→12:19)
[2021-07-15] MEDS: InsuLIN REG 1unit/0.01ml Soln (100units/ml) SC SCH ×2 (06:31→12:19)
[2021-07-15 09:00] VITALS: BP 98/54
[2021-07-15] MEDS: DOCUSATE SOD 100 MG CAP PO SCH (10:00)
[2021-07-15] MEDS: CARVEDILOL 12.5 MG TAB PO SCH (10:00)
[2021-07-15] MEDS: FERROUS SULFATE 325mg EC TAB PO SCH ×2 (10:00→17:41)
[2021-07-15] MEDS: ERTAPENEM SOD INJ 0.5 GM in SODIUM CHL 0.9% 50 ML IV SCH (10:00)
[2021-07-15] MEDS: SACUBITRIL-VALSARTAN 24mg/26mg TAB PO SCH (10:01)
[2021-07-15] MEDS: AMIODARONE HCL 200 MG TAB PO SCH (10:01)
[2021-07-15] MEDS: ASPirin-EC 81 mg tab PO SCH (10:01)
[2021-07-15] MEDS: MULTIPLE VITAMIN TAB PO SCH (10:02)
[2021-07-15] MEDS: PANTOPRAZOLE 40 MG TAB PO SCH (10:02)
[2021-07-15 13:00] VITALS: BP 84/42
[2021-07-15 14:38] LABS: BUN/Creatinine Ratio 16.1; Potassium 3.8 mmol/L (3.5-5.1)
[2021-07-15 14:39] LABS: Basophils # (auto) 0 10 ^3/uL (0-0.2); Basophils % (auto) 0.9 % (0.0-2.0); Eosinophils # (auto) 0.1 10 ^3/uL (0-0.8); Hemoglobin 12.4 g/dL (12.2-16.2); Lymphocytes # (auto) 0.5 10 ^3/uL (0.4-5.4); Lymphocytes % (auto) 12.9 % (10.0-50.0); Mean Corpuscular Hgb Conc. 31.8 g/dL (32.0-36.0); Monocytes # (auto) 0.5 10 ^3/uL (0-1.3); Monocytes % (auto) 12.2 % (0.0-12.0); Neutrophils # (auto) 2.8 10 ^3/uL (1.6-8.6); Nucleated Red Blood Cells % 0.8 %; Red Cell Distribution Width 18.2 % (11.8-14.3); White Blood Cell 3.9 10^3/uL (4.4-10.8)
[2021-07-15 15:03] VITALS: BP 80/43
[2021-07-15 17:13] VITALS: BP 95/57
[2021-07-15] MEDS: ATORVASTATIN 20 MG TAB PO SCH (21:11)
[2021-07-15] MEDS: CARVEDILOL 3.125 MG TAB PO SCH (21:13)
[2021-07-15 22:00] VITALS: BP 98/57
[2021-07-16 05:00] VITALS: BP 102/58
[2021-07-16] MEDS: SODIUM CHLOR 0.9% PF (SALINE LOCK) 10ML VIAL/SYR IV SCH ×3 (05:27→22:27)
[2021-07-16] MEDS: FUROSEMIDE 100 MG/10ML VIAL IV SCH ×2 (05:27→18:48)
[2021-07-16] MEDS: HEPARIN SODIUM (PORCINE) 5000 UNITS/ML 1ML VIAL SC SCH ×3 (05:28→22:28)
[2021-07-16] MEDS ORDERED: PHYTONADIONE(VitK) ORAL Susp 5mg/5ml(1mg/ml) PO ONE (07:15)
[2021-07-16 07:50] LABS: Basophils # (auto) 0 10 ^3/uL (0-0.2); Basophils % (auto) 0.5 % (0.0-2.0); Eosinophils # (auto) 0.1 10 ^3/uL (0-0.8); Hematocrit 36.7 % (36.0-46.0); Hemoglobin 11.7 g/dL (12.2-16.2); Lymphocytes # (auto) 0.5 10 ^3/uL (0.4-5.4); Lymphocytes % (auto) 12.1 % (10.0-50.0); Mean Corpuscular Hgb Conc. 31.9 g/dL (32.0-36.0); Mean Corpuscular Volume 84.6 fL (80.0-100.0); Monocytes # (auto) 0.7 10 ^3/uL (0-1.3); Monocytes % (auto) 17.2 % (0.0-12.0); Neutrophils # (auto) 2.6 10 ^3/uL (1.6-8.6); Neutrophils % (auto) 68.2 % (37.0-80.0); Nucleated Red Blood Cells % 0.6 %; Red Blood Cells 4.33 10^6/uL (4.0-5.20); Red Cell Distribution Width 18.3 % (11.8-14.3); White Blood Cell 3.9 10^3/uL (4.4-10.8)
[2021-07-16] MEDS: FERROUS SULFATE 325mg EC TAB PO SCH ×2 (08:00→18:48)
[2021-07-16 08:03] LABS: INR 1.67 (0.9-1.15)
[2021-07-16 08:07] LABS: BUN/Creatinine Ratio 16.5; Calcium 7.8 mg/dL (8.5-10.1); Potassium 4.8 mmol/L (3.5-5.1)
[2021-07-16] MEDS: ERTAPENEM SOD INJ 1 GM in SODIUM CHL 0.9% 50 ML IV SCH (08:58)
[2021-07-16] MEDS: DOCUSATE SOD 100 MG CAP PO SCH (08:59)
[2021-07-16] MEDS: AMIODARONE HCL 200 MG TAB PO SCH (08:59)
[2021-07-16 09:00] VITALS: BP 100/58
[2021-07-16] MEDS: ASPirin-EC 81 mg tab PO SCH (09:01)
[2021-07-16] MEDS: CARVEDILOL 3.125 MG TAB PO SCH ×2 (09:01→22:00)
[2021-07-16] MEDS: PANTOPRAZOLE 40 MG TAB PO SCH (09:01)
[2021-07-16 13:00] VITALS: BP 97/52
[2021-07-16 17:00] VITALS: BP 88/57
[2021-07-16 17:01] VITALS: BP 101/56
[2021-07-16 22:00] VITALS: BP 98/62
[2021-07-16] MEDS: ATORVASTATIN 20 MG TAB PO SCH (22:27)
[2021-07-17 05:00] VITALS: BP 109/70
[2021-07-17] MEDS: FUROSEMIDE 100 MG/10ML VIAL IV SCH ×2 (05:59→17:48)
[2021-07-17] MEDS: SODIUM CHLOR 0.9% PF (SALINE LOCK) 10ML VIAL/SYR IV SCH ×3 (05:59→22:51)
[2021-07-17] MEDS: HEPARIN SODIUM (PORCINE) 5000 UNITS/ML 1ML VIAL SC SCH (06:00)
[2021-07-17 06:02] LABS: Basophils # (auto) 0.1 10 ^3/uL (0-0.2); Basophils % (auto) 1.5 % (0.0-2.0); Eosinophils # (auto) 0.1 10 ^3/uL (0-0.8); Eosinophils % (auto) 2.2 % (0.0-7.0); Hematocrit 38.3 % (36.0-46.0); Hemoglobin 12.2 g/dL (12.2-16.2); Lymphocytes # (auto) 0.7 10 ^3/uL (0.4-5.4); Lymphocytes % (auto) 16.6 % (10.0-50.0); Mean Corpuscular Hemoglobin 27.5 pg (28.0-32.0); Mean Corpuscular Hgb Conc. 31.9 g/dL (32.0-36.0); Mean Corpuscular Volume 86.2 fL (80.0-100.0); Monocytes # (auto) 0.6 10 ^3/uL (0-1.3); Monocytes % (auto) 13.5 % (0.0-12.0); Neutrophils # (auto) 2.8 10 ^3/uL (1.6-8.6); Neutrophils % (auto) 66.2 % (37.0-80.0); Nucleated Red Blood Cells % 0.3 %; Red Blood Cells 4.45 10^6/uL (4.0-5.20); Red Cell Distribution Width 17.9 % (11.8-14.3); White Blood Cell 4.2 10^3/uL (4.4-10.8)
[2021-07-17 06:23] LABS: Potassium 4.6 mmol/L (3.5-5.1)
[2021-07-17 06:34] LABS: BUN/Creatinine Ratio 16.4
[2021-07-17] MEDS: FERROUS SULFATE 325mg EC TAB PO SCH ×2 (07:39→17:49)
[2021-07-17 08:32] LABS: INR 1.71 (0.9-1.15)
[2021-07-17 09:00] VITALS: BP 100/61
[2021-07-17] MEDS: CARVEDILOL 3.125 MG TAB PO SCH ×2 (10:00→22:00)
[2021-07-17] MEDS: AMIODARONE HCL 200 MG TAB PO SCH (10:00)
[2021-07-17] MEDS: ERTAPENEM SOD INJ 1 GM in SODIUM CHL 0.9% 50 ML IV SCH (10:00)
[2021-07-17] MEDS: DOCUSATE SOD 100 MG CAP PO SCH (10:00)
[2021-07-17] MEDS: PANTOPRAZOLE 40 MG TAB PO SCH (10:00)
[2021-07-17] MEDS ORDERED: PHYTONADIONE(VitK) ORAL Susp 5mg/5ml(1mg/ml) PO ONE (10:45)
[2021-07-17 17:10] VITALS: BP 95/54
[2021-07-17 21:36] VITALS: BP 92/51
[2021-07-17] MEDS: ATORVASTATIN 20 MG TAB PO SCH (22:51)
[2021-07-18] VITALS (9 sets, daily range): BP systolic 98–119; BP diastolic 55–67
[2021-07-18 05:50] LABS: Urine Bacteria FEW /hpf (None Seen); Urine Blood 2+ /uL (Negative); Urine Budding Yeast OCCASIONAL /hpf (None Seen); Urine Hyaline Cast FEW /lpf (0 - 2); Urine Mucus FEW (None Seen); Urine Specific Gravity 1.013 (1.001-1.035); Urine WBC 29 /hpf (0 - 5); Urine WBC Clumps PRESENT /hpf (None Seen)
[2021-07-18] MEDS: FUROSEMIDE 100 MG/10ML VIAL IV SCH ×3 (05:54→18:13)
[2021-07-18] MEDS: SODIUM CHLOR 0.9% PF (SALINE LOCK) 10ML VIAL/SYR IV SCH ×3 (06:00→22:07)
[2021-07-18 06:21] LABS: Basophils # (auto) 0 10 ^3/uL (0-0.2); Basophils % (auto) 0.7 % (0.0-2.0); Eosinophils # (auto) 0.1 10 ^3/uL (0-0.8); Eosinophils % (auto) 2.1 % (0.0-7.0)
[2021-07-18 06:24] LABS: Hematocrit 39.8 % (36.0-46.0); Hemoglobin 12.3 g/dL (12.2-16.2); Lymphocytes # (auto) 0.6 10 ^3/uL (0.4-5.4); Lymphocytes % (auto) 16.4 % (10.0-50.0); Mean Corpuscular Hemoglobin 26.6 pg (28.0-32.0); Mean Corpuscular Volume 85.7 fL (80.0-100.0); Monocytes # (auto) 0.5 10 ^3/uL (0-1.3); Monocytes % (auto) 14.8 % (0.0-12.0); Neutrophils # (auto) 2.4 10 ^3/uL (1.6-8.6); Nucleated Red Blood Cells % 0.3 %; Red Blood Cells 4.64 10^6/uL (4.0-5.20); Red Cell Distribution Width 17.8 % (11.8-14.3); White Blood Cell 3.7 10^3/uL (4.4-10.8)
[2021-07-18 06:33] LABS: INR 1.45 (0.9-1.15)
[2021-07-18 06:37] LABS: BUN/Creatinine Ratio 15.3
[2021-07-18] MEDS ORDERED: VANCOMYCIN 1GM/250ML 250 ML IV ONE (07:24)
[2021-07-18] MEDS ORDERED: fentaNYL CITRATE 100 MCG/2 ML VL ONE (07:45)
[2021-07-18] MEDS ORDERED: VANCOMYCIN HCL 1000 MG VL ONE (07:45)
[2021-07-18] MEDS ORDERED: MIDAZOLAM HCL 2MG/2ML 2ml VIAL (1mg/ml) ONE (07:46)
[2021-07-18] MEDS ORDERED: LIDOCAINE 2%HCL (LOCAL ANESTH.) INJ 10ml MDV ONE ×2 (08:07→08:11)
[2021-07-18] MEDS ORDERED: ceFAZolin 1GM VL ONE (08:12)
[2021-07-18] MEDS ORDERED: DOXYCYCLINE 100 MG TAB/CAP PO ONE ×2 (09:30→10:00)
[2021-07-18] MEDS: FERROUS SULFATE 325mg EC TAB PO SCH ×2 (11:54→18:14)
[2021-07-18] MEDS: AMIODARONE HCL 200 MG TAB PO SCH (11:55)
[2021-07-18] MEDS: ERTAPENEM SOD INJ 1 GM in SODIUM CHL 0.9% 50 ML IV SCH (11:55)
[2021-07-18] MEDS: DOCUSATE SOD 100 MG CAP PO SCH (11:55)
[2021-07-18] MEDS: CARVEDILOL 3.125 MG TAB PO SCH ×2 (11:56→22:08)
[2021-07-18] MEDS: PANTOPRAZOLE 40 MG TAB PO SCH (11:56)
[2021-07-18] MEDS ORDERED: VANCOMYCIN 1GM/250ML 250 ML IV SCH (20:00)
[2021-07-18] MEDS: VANCOMYCIN 1GM/250ML 250 ML IV SCH (22:07)
[2021-07-18] MEDS: FLORASTOR (S. BOULARDII) 250 MG CAP PO SCH (22:09)
[2021-07-18] MEDS: ATORVASTATIN 20 MG TAB PO SCH (22:09)
[2021-07-19 05:32] VITALS: BP 113/64
[2021-07-19] MEDS: FUROSEMIDE 100 MG/10ML VIAL IV SCH ×2 (06:38→17:49)
[2021-07-19] MEDS: SODIUM CHLOR 0.9% PF (SALINE LOCK) 10ML VIAL/SYR IV SCH ×3 (06:38→21:33)
[2021-07-19 09:00] VITALS: BP 106/58
[2021-07-19] MEDS: FERROUS SULFATE 325mg EC TAB PO SCH ×2 (10:27→17:49)
[2021-07-19] MEDS: VANCOMYCIN 1GM/250ML 250 ML IV SCH (10:27)
[2021-07-19] MEDS: AMIODARONE HCL 200 MG TAB PO SCH (10:28)
[2021-07-19] MEDS: DOCUSATE SOD 100 MG CAP PO SCH (10:28)
[2021-07-19] MEDS: DOXYCYCLINE 100 MG TAB/CAP PO SCH ×2 (10:30→21:33)
[2021-07-19] MEDS: FLORASTOR (S. BOULARDII) 250 MG CAP PO SCH ×2 (10:30→21:34)
[2021-07-19] MEDS: CARVEDILOL 3.125 MG TAB PO SCH ×2 (10:30→21:34)
[2021-07-19] MEDS: PANTOPRAZOLE 40 MG TAB PO SCH (10:30)
[2021-07-19 10:41] LABS: INR 1.29 (0.9-1.15); Partial Thromboplastin Time 31.6 sec (23.6-33.0)
[2021-07-19] MEDS: ERTAPENEM SOD INJ 1 GM in SODIUM CHL 0.9% 50 ML IV SCH (12:25)
[2021-07-19 13:00] VITALS: BP 102/58
[2021-07-19 16:44] VITALS: BP 107/65
[2021-07-19] MEDS ORDERED: WARFARIN SODIUM 1 MG TAB PO SCH (17:00)
[2021-07-19] MEDS ORDERED: WARFARIN SODIUM 5 MG TAB PO ONE (17:00)
[2021-07-19] MEDS: ACETAMINOPHEN 325 MG TAB PO PRN (21:34)
[2021-07-19] MEDS: ATORVASTATIN 20 MG TAB PO SCH (21:35)
[2021-07-19 22:13] VITALS: BP 107/67
[2021-07-20 05:22] VITALS: BP 110/63
[2021-07-20 05:25] LABS: Basophils # (auto) 0.1 10 ^3/uL (0-0.2); Basophils % (auto) 1.3 % (0.0-2.0); Eosinophils # (auto) 0.1 10 ^3/uL (0-0.8); Eosinophils % (auto) 1.7 % (0.0-7.0); Hematocrit 37.1 % (36.0-46.0); Hemoglobin 12.1 g/dL (12.2-16.2); Lymphocytes # (auto) 0.7 10 ^3/uL (0.4-5.4); Lymphocytes % (auto) 16.4 % (10.0-50.0); Mean Corpuscular Hemoglobin 27.1 pg (28.0-32.0); Mean Corpuscular Hgb Conc. 32.5 g/dL (32.0-36.0); Mean Corpuscular Volume 83.2 fL (80.0-100.0); Monocytes # (auto) 0.5 10 ^3/uL (0-1.3); Monocytes % (auto) 12.3 % (0.0-12.0); Neutrophils # (auto) 2.9 10 ^3/uL (1.6-8.6); Neutrophils % (auto) 68.3 % (37.0-80.0); Nucleated Red Blood Cells % 0.1 %; Red Blood Cells 4.45 10^6/uL (4.0-5.20); Red Cell Distribution Width 17.5 % (11.8-14.3); White Blood Cell 4.3 10^3/uL (4.4-10.8)
[2021-07-20 05:38] LABS: INR 1.27 (0.9-1.15)
[2021-07-20 05:46] LABS: BUN/Creatinine Ratio 16.3; Calcium 7.9 mg/dL (8.5-10.1); Potassium 3.7 mmol/L (3.5-5.1)
[2021-07-20] MEDS: SODIUM CHLOR 0.9% PF (SALINE LOCK) 10ML VIAL/SYR IV SCH ×3 (05:57→21:56)
[2021-07-20] MEDS: FUROSEMIDE 100 MG/10ML VIAL IV SCH ×2 (05:58→18:48)
[2021-07-20 08:32] VITALS: BP 98/53
[2021-07-20] MEDS: CARVEDILOL 3.125 MG TAB PO SCH ×2 (10:00→21:47)
[2021-07-20] MEDS: ERTAPENEM SOD INJ 1 GM in SODIUM CHL 0.9% 50 ML IV SCH (12:22)
[2021-07-20] MEDS: FERROUS SULFATE 325mg EC TAB PO SCH ×2 (12:22→18:37)
[2021-07-20] MEDS: DOCUSATE SOD 100 MG CAP PO SCH (12:23)
[2021-07-20] MEDS: AMIODARONE HCL 200 MG TAB PO SCH (12:23)
[2021-07-20] MEDS: FLORASTOR (S. BOULARDII) 250 MG CAP PO SCH ×2 (12:24→21:47)
[2021-07-20] MEDS: PANTOPRAZOLE 40 MG TAB PO SCH (12:24)
[2021-07-20 12:53] VITALS: BP 110/62
[2021-07-20 16:30] VITALS: BP 118/65
[2021-07-20] MEDS ORDERED: WARFARIN SODIUM 5 MG TAB PO ONE (17:00)
[2021-07-20] MEDS: ATORVASTATIN 20 MG TAB PO SCH (21:47)
[2021-07-20 22:00] VITALS: BP 128/70
[2021-07-21] MEDS: ACETAMINOPHEN 325 MG TAB PO PRN (00:34)
[2021-07-21 04:45] VITALS: BP 105/69
[2021-07-21] MEDS: FUROSEMIDE 100 MG/10ML VIAL IV SCH ×2 (05:57→18:52)
[2021-07-21] MEDS: SODIUM CHLOR 0.9% PF (SALINE LOCK) 10ML VIAL/SYR IV SCH ×3 (05:57→20:31)
[2021-07-21 06:55] LABS: Basophils # (auto) 0 10 ^3/uL (0-0.2); Basophils % (auto) 0.7 % (0.0-2.0); Eosinophils # (auto) 0.1 10 ^3/uL (0-0.8); Eosinophils % (auto) 1.7 % (0.0-7.0); Hematocrit 36.2 % (36.0-46.0); Hemoglobin 11.5 g/dL (12.2-16.2); Lymphocytes # (auto) 0.6 10 ^3/uL (0.4-5.4); Lymphocytes % (auto) 15.3 % (10.0-50.0); Mean Corpuscular Hemoglobin 26.7 pg (28.0-32.0); Mean Corpuscular Hgb Conc. 31.7 g/dL (32.0-36.0); Mean Corpuscular Volume 84.2 fL (80.0-100.0); Monocytes # (auto) 0.4 10 ^3/uL (0-1.3); Monocytes % (auto) 10.6 % (0.0-12.0); Neutrophils # (auto) 2.9 10 ^3/uL (1.6-8.6); Neutrophils % (auto) 71.7 % (37.0-80.0); Nucleated Red Blood Cells % 0.1 %; Red Cell Distribution Width 17.6 % (11.8-14.3); White Blood Cell 4.1 10^3/uL (4.4-10.8)
[2021-07-21 07:05] LABS: INR 1.46 (0.9-1.15)
[2021-07-21 09:00] VITALS: BP 111/59
[2021-07-21] MEDS: FERROUS SULFATE 325mg EC TAB PO SCH ×2 (09:16→18:51)
[2021-07-21] MEDS: FLORASTOR (S. BOULARDII) 250 MG CAP PO SCH ×2 (09:17→20:28)
[2021-07-21] MEDS: CARVEDILOL 3.125 MG TAB PO SCH ×2 (09:18→20:29)
[2021-07-21] MEDS: DOCUSATE SOD 100 MG CAP PO SCH (09:19)
[2021-07-21] MEDS: AMIODARONE HCL 200 MG TAB PO SCH (09:19)
[2021-07-21] MEDS: ERTAPENEM SOD INJ 1 GM in SODIUM CHL 0.9% 50 ML IV SCH (09:24)
[2021-07-21] MEDS: PANTOPRAZOLE 40 MG TAB PO SCH (09:28)
[2021-07-21 13:00] VITALS: BP 114/54
[2021-07-21 14:12] LABS: Basophils # (auto) 0 10 ^3/uL (0-0.2); Basophils % (auto) 0.6 % (0.0-2.0); Eosinophils # (auto) 0.1 10 ^3/uL (0-0.8); Eosinophils % (auto) 1.5 % (0.0-7.0); Hematocrit 38.3 % (36.0-46.0); Hemoglobin 12.3 g/dL (12.2-16.2); Lymphocytes # (auto) 0.6 10 ^3/uL (0.4-5.4); Lymphocytes % (auto) 13.8 % (10.0-50.0); Mean Corpuscular Hgb Conc. 32.2 g/dL (32.0-36.0); Mean Corpuscular Volume 83.8 fL (80.0-100.0); Monocytes # (auto) 0.5 10 ^3/uL (0-1.3); Monocytes % (auto) 11.7 % (0.0-12.0); Neutrophils # (auto) 3.2 10 ^3/uL (1.6-8.6); Neutrophils % (auto) 72.4 % (37.0-80.0); Nucleated Red Blood Cells % 0.1 %; Red Blood Cells 4.57 10^6/uL (4.0-5.20); Red Cell Distribution Width 17.3 % (11.8-14.3); White Blood Cell 4.4 10^3/uL (4.4-10.8)
[2021-07-21 14:40] LABS: Albumin 2.2 g/dL (3.4-5.0); Calcium 8.1 mg/dL (8.5-10.1); Potassium 3.8 mmol/L (3.5-5.1)
[2021-07-21 14:45] LABS: BUN/Creatinine Ratio 15.9; Bilirubin, Total 0.9 mg/dL (0.2-1.0); Total Protein 6.8 g/dL (6.4-8.2)
[2021-07-21 16:25] VITALS: BP 111/55
[2021-07-21] MEDS ORDERED: WARFARIN SODIUM 5 MG TAB PO ONE (17:00)
[2021-07-21] MEDS: ATORVASTATIN 20 MG TAB PO SCH (20:29)
[2021-07-21 22:00] VITALS: BP 108/67
[2021-07-22 05:04] VITALS: BP 113/64
[2021-07-22] MEDS: FUROSEMIDE 100 MG/10ML VIAL IV SCH ×2 (06:14→17:49)
[2021-07-22] MEDS: SODIUM CHLOR 0.9% PF (SALINE LOCK) 10ML VIAL/SYR IV SCH ×2 (06:15→14:00)
[2021-07-22 06:22] LABS: INR 1.99 (0.9-1.15); Partial Thromboplastin Time 36.4 sec (23.6-33.0)
[2021-07-22] MEDS: FERROUS SULFATE 325mg EC TAB PO SCH ×2 (08:00→17:48)
[2021-07-22 09:00] VITALS: BP 96/46
[2021-07-22] MEDS: PANTOPRAZOLE 40 MG TAB PO SCH (10:00)
[2021-07-22] MEDS: CARVEDILOL 3.125 MG TAB PO SCH (10:00)
[2021-07-22] MEDS: FLORASTOR (S. BOULARDII) 250 MG CAP PO SCH (10:00)
[2021-07-22] MEDS: ERTAPENEM SOD INJ 1 GM in SODIUM CHL 0.9% 50 ML IV SCH (10:00)
[2021-07-22] MEDS: DOCUSATE SOD 100 MG CAP PO SCH (10:22)
[2021-07-22] MEDS: AMIODARONE HCL 200 MG TAB PO SCH (10:22)
[2021-07-22 12:45] VITALS: BP 103/63
[2021-07-22 14:39] VITALS: BP 103/61
[2021-07-22] MEDS ORDERED: WARFARIN SODIUM 2 MG TAB PO ONE (17:00)
[2021-07-22 17:20] VITALS: BP 124/79
[2021-07-22] MEDS ORDERED: DOXYCYCLINE 100 MG TAB/CAP PO SCH (22:00)
== END 2021-07-22 21:25 | DRG 245 ==
LOC: EDUNIT# 18:02 → EDBD 18:02 → ER 18:02 → TELE 22:19 → TELE-EAST 07-13 02:00
PROVIDERS: ADMIT Internal Medicine; ATTEND Internal Medicine
PROC: 4B02XTZ Measurement of Cardiac Defibrillator, External Approach (ICD-10-PCS; 2021-07-14)
PROC: 0JH609Z Insertion of Cardiac Resynchronization Defibrillator Pulse Generator into Chest Subcutaneous Tissue and Fascia, Open Approach (ICD-10-PCS; principal; 2021-07-18)
PROC: 0JPT0PZ Removal of Cardiac Rhythm Related Device from Trunk Subcutaneous Tissue and Fascia, Open Approach (ICD-10-PCS; 2021-07-18)
DX: I13.0 Hypertensive heart and chronic kidney disease with heart failure and stage 1 through stage 4 chronic kidney disease, or unspecified chronic kidney disease (principal); I50.23 Acute on chronic systolic (congestive) heart failure; E44.0 Moderate protein-calorie malnutrition; N39.0 Urinary tract infection, site not specified; D68.69 Other thrombophilia; N17.9 Acute kidney failure, unspecified; I25.5 Ischemic cardiomyopathy; I42.0 Dilated cardiomyopathy; E11.65 Type 2 diabetes mellitus with hyperglycemia; I48.91 Unspecified atrial fibrillation; K21.9 Gastro-esophageal reflux disease without esophagitis; N18.30 Chronic kidney disease, stage 3 unspecified; Z20.822 Contact with and (suspected) exposure to COVID-19; J45.909 Unspecified asthma, uncomplicated; I25.10 Atherosclerotic heart disease of native coronary artery without angina pectoris; E80.6 Other disorders of bilirubin metabolism; E78.5 Hyperlipidemia, unspecified; I25.2 Old myocardial infarction; Z68.25 Body mass index [BMI] 25.0-25.9, adult; E11.22 Type 2 diabetes mellitus with diabetic chronic kidney disease; J44.9 Chronic obstructive pulmonary disease, unspecified; Z79.84 Long term (current) use of oral hypoglycemic drugs
CPT/HCPCS: 33264; 36415; 71045; 74176; 80048; 80053; 80162; 81001; 82565; 82962; 83735; 83880; 84443; 84484; 85025; 85610; 85730; 86850; 86900; 86901; 87081; 87086; 93005; 93970; 96361; 96374; 97110; 97116; 97163; 97530; 99152; 99153; G0378; J0690; J1335; J1815; J2001; J2250; J2405

== ENCOUNTER 2021-08-21 17:22 | Inpatient (IN) | payer MEDICARE ==
[~2021-08-21] VITALS: Ht 162.6 cm; Wt 63.5 kg
[~2021-08-21 17:22] MED LIST changes: +TRAM50TA2 PO
[2021-08-21] MEDS ORDERED: cefTRIAXone 1GM/50ML D5W 50 ML IV ONE (17:45)
[2021-08-21] MEDS ORDERED: SODIUM CHLORIDE 0.9% 1,000 ML IV ONE (17:45)
[2021-08-21 19:20] LABS: Hemoglobin 11.7 g/dL (12.2-16.2)
[2021-08-21 19:28] LABS: Mean Corpuscular Hemoglobin 27.6 pg (28.0-32.0); Mean Corpuscular Hgb Conc. 32.6 g/dL (32.0-36.0); Mean Corpuscular Volume 84.5 fL (80.0-100.0); Red Blood Cells 4.25 10^6/uL (4.0-5.20); Red Cell Distribution Width 19.9 % (11.8-14.3); White Blood Cell 3.9 10^3/uL (4.4-10.8)
[2021-08-21 19:32] LABS: Basophils % (manual) 0 (0.0-2.0); Myelocytes % 0; Promyelocytes % 0; Reactive Lymphocytes 0
[2021-08-21 19:39] LABS: INR 1.56 (0.9-1.15); Partial Thromboplastin Time 35.2 sec (23.6-33.0)
[2021-08-21 19:41] LABS: Lactic Acid w/Reflex 2.4 mmol/L (0.4-2.0)
[2021-08-21] MEDS ORDERED: ASPirin 81 mg TAB PO ONE (20:15)
[2021-08-21 20:49] LABS: Band Neutrophils % (manual) 1; Eosinophils % (manual) 1 (0-7); Lymphocytes % (manual) 14 (10.0-50.0); Metamyelocytes % 1; Monocytes % (manual) 11 (0-12)
[2021-08-21 22:22] LABS: Alanine Aminotransferase 48 U/L (13-56); Alkaline Phosphatase 285 U/L (45-117); Anion Gap 12 (5-15); Aspartate Aminotransferase 72 U/L (15-37); BUN/Creatinine Ratio 16.1; Blood Urea Nitrogen 49 mg/dL (7-18); Calcium 8.2 mg/dL (8.5-10.1); Carbon Dioxide 20 mmol/L (21-32); Chloride 105 mmol/L (98-107); GFR African American 19 mL/min; GFR Non-African American 16 mL/min; Glucose 158 mg/dL (74-106); Sodium 137 mmol/L (136-145)
[2021-08-21 22:23] LABS: Albumin 2.6 g/dL (3.4-5.0); Bilirubin, Total 2.8 mg/dL (0.2-1.0); Lipase 158 U/L (73-393); Total Protein 7.2 g/dL (6.4-8.2)
[2021-08-21 22:25] LABS: Potassium 5.8 mmol/L (3.5-5.1)
[2021-08-21] MEDS: SODIUM CHLORIDE 0.9% 1,000 ML IV ONE ×2 (23:32→23:33)
[2021-08-22 00:23] LABS: Urine Bacteria FEW /hpf (None Seen); Urine Blood Negative /uL (Negative); Urine Hyaline Cast MOD /lpf (0 - 2); Urine Specific Gravity 1.014 (1.001-1.035); Urine WBC 5 /hpf (0 - 5)
[2021-08-22] MEDS ORDERED: MORPHINE SULFATE INJ 2 MG/ml SYRG IV PRN (00:45)
[2021-08-22] MEDS ORDERED: CALCIUM GLUC 1,000mg/50ml-NS 50 ML IV ONE (00:45)
[2021-08-22] MEDS ORDERED: ONDANSETRON HCL 4 MG/2 ML VIAL IV PRN (00:45)
[2021-08-22] MEDS ORDERED: FUROSEMIDE 40 MG/4 ML VIAL IV ONE (00:45)
[2021-08-22] MEDS ORDERED: TEMAZEPAM 15 MG CAP PO PRN (00:45)
[2021-08-22] MEDS ORDERED: HYDROcodone-ACET 5/325MG TAB PO PRN (00:45)
[2021-08-22] MEDS ORDERED: DEXTROSE (50%) 50ML SYRG IV PRN (00:45)
[2021-08-22] MEDS ORDERED: SODIUM BICARBONATE 8.4 % INJ 50ML VIAL IV ONE (00:45)
[2021-08-22] MEDS ORDERED: ACETAMINOPHEN 325 MG TAB PO PRN (00:45)
[2021-08-22] MEDS ORDERED: VANCOMYCIN 1GM/250ML 250 ML IV ONE (00:45)
[2021-08-22] MEDS ORDERED: NITROGLYCERIN 0.4 MG SL TAB SL PRN (00:45)
[2021-08-22] MEDS ORDERED: SODIUM ZIRCONIUM CYCL 10 GM PAK PO ONE (00:45)
[2021-08-22] MEDS: PHENYLEPHRINE IV 250 ML IV SCH ×4 (03:40→23:19)
[2021-08-22] MEDS ORDERED: FUROSEMIDE 20 MG/2 ML VIAL IV SCH (06:00)
[2021-08-22] MEDS: ACCU-CHEK COMFORT CURVE STRIP VI SCH ×4 (06:44→22:30)
[2021-08-22] MEDS: InsuLIN REG 1unit/0.01ml Soln (100units/ml) SC SCH ×4 (06:50→23:00)
[2021-08-22 07:11] LABS: Lactic Acid w/Reflex 2.2 mmol/L (0.4-2.0)
[2021-08-22] MEDS: cefTRIAXone 1GM/50ML D5W 50 ML IV SCH (09:24)
[2021-08-22] MEDS ORDERED: ASPirin 81 mg TAB PO SCH (10:00)
[2021-08-22] MEDS: AMIODARONE HCL 200 MG TAB PO SCH (10:00)
[2021-08-22] MEDS: CARVEDILOL 12.5 MG TAB PO SCH ×2 (10:00→22:00)
[2021-08-22] MEDS: SACUBITRIL-VALSARTAN 24mg/26mg TAB PO SCH ×2 (10:00→22:00)
[2021-08-22] MEDS ORDERED: DIGOXIN 0.125 MG TAB PO SCH (10:00)
[2021-08-22] MEDS: PANTOPRAZOLE 40 MG TAB PO SCH (10:21)
[2021-08-22 10:29] LABS: BUN/Creatinine Ratio 18.9; Potassium 4.9 mmol/L (3.5-5.1)
[2021-08-22] MEDS ORDERED: LACTULOSE 20Gm/30ML SOLN PO ONE (13:45)
[2021-08-22 15:21] LABS: Basophils # (auto) 0.2 10 ^3/uL (0-0.2); Basophils % (auto) 4.1 % (0.0-2.0); Eosinophils # (auto) 0.1 10 ^3/uL (0-0.8); Eosinophils % (auto) 2.1 % (0.0-7.0); Hematocrit 41.7 % (36.0-46.0); Hemoglobin 12.5 g/dL (12.2-16.2); Lymphocytes # (auto) 0.4 10 ^3/uL (0.4-5.4); Mean Corpuscular Hemoglobin 26.8 pg (28.0-32.0); Mean Corpuscular Hgb Conc. 30.1 g/dL (32.0-36.0); Mean Corpuscular Volume 89.1 fL (80.0-100.0); Monocytes # (auto) 0.9 10 ^3/uL (0-1.3); Monocytes % (auto) 16.7 % (0.0-12.0); Neutrophils # (auto) 3.8 10 ^3/uL (1.6-8.6); Neutrophils % (auto) 70.1 % (37.0-80.0); Red Blood Cells 4.68 10^6/uL (4.0-5.20); White Blood Cell 5.3 10^3/uL (4.4-10.8)
[2021-08-22 15:22] LABS: Nucleated Red Blood Cells % 4.5 %; Red Cell Distribution Width 20.7 % (11.8-14.3)
[2021-08-22] MEDS ORDERED: FUROSEMIDE 100 MG/10ML VIAL IV SCH (18:00)
[2021-08-22] MEDS ORDERED: WARFARIN SODIUM 1 MG TAB PO ONE (18:15)
[2021-08-22 18:36] LABS: INR 1.54 (0.9-1.15); Partial Thromboplastin Time 37.4 sec (23.6-33.0)
[2021-08-22] MEDS ORDERED: ATORVASTATIN 20 MG TAB PO SCH (22:00)
[2021-08-22] MEDS: LACTULOSE 20Gm/30ML SOLN PO SCH (23:45)
[2021-08-23 06:02] LABS: Basophils # (auto) 0.1 10 ^3/uL (0-0.2); Basophils % (auto) 0.7 % (0.0-2.0); Eosinophils # (auto) 0.1 10 ^3/uL (0-0.8); Eosinophils % (auto) 0.6 % (0.0-7.0); Hematocrit 40.4 % (36.0-46.0); Hemoglobin 12.8 g/dL (12.2-16.2); Lymphocytes # (auto) 0.4 10 ^3/uL (0.4-5.4); Mean Corpuscular Hemoglobin 26.9 pg (28.0-32.0); Mean Corpuscular Hgb Conc. 31.6 g/dL (32.0-36.0); Mean Corpuscular Volume 85.1 fL (80.0-100.0); Monocytes # (auto) 0.6 10 ^3/uL (0-1.3); Monocytes % (auto) 7.1 % (0.0-12.0); Neutrophils # (auto) 7.2 10 ^3/uL (1.6-8.6); Neutrophils % (auto) 86.6 % (37.0-80.0); Nucleated Red Blood Cells % 2.1 %; Red Blood Cells 4.75 10^6/uL (4.0-5.20); White Blood Cell 8.3 10^3/uL (4.4-10.8)
[2021-08-23 06:04] LABS: Calcium 8.3 mg/dL (8.5-10.1)
[2021-08-23 06:07] LABS: BUN/Creatinine Ratio 14.2; Bilirubin, Total 3.1 mg/dL (0.2-1.0); Total Protein 8.1 g/dL (6.4-8.2)
[2021-08-23 06:10] LABS: Potassium 6.3 mmol/L (3.5-5.1)
[2021-08-23] MEDS ORDERED: SODIUM BICARBONATE 8.4 % INJ 50ML VIAL IV ONE (06:30)
[2021-08-23] MEDS ORDERED: SODIUM ZIRCONIUM CYCL 10 GM PAK GT ONE (06:30)
[2021-08-23] MEDS ORDERED: DEXTROSE (50%) 50ML SYRG IV ONE (06:30)
[2021-08-23] MEDS ORDERED: InsuLIN REG 1unit/0.01ml Soln (100units/ml) IV ONE (06:30)
[2021-08-23] MEDS ORDERED: CALCIUM GLUC 1,000mg/50ml-NS 50 ML IV ONE (06:30)
[2021-08-23 06:40] LABS: Red Cell Distribution Width 20.3 % (11.8-14.3)
[2021-08-23 07:27] LABS: Calcium 5.3 mg/dL (8.5-10.1)
[2021-08-23] MEDS ORDERED: DOBUTamine 1000MCG/ML 250 ML IV SCH (07:45)
[2021-08-23] MEDS: ACCU-CHEK COMFORT CURVE STRIP VI SCH ×4 (08:15→22:00)
[2021-08-23] MEDS: InsuLIN REG 1unit/0.01ml Soln (100units/ml) SC SCH ×4 (08:27→22:00)
[2021-08-23] MEDS ORDERED: SODIUM BICARBONATE 50ML VIAL 150 ML in D5W 5% 1,000 ML IV SCH (09:00)
[2021-08-23] MEDS ORDERED: FUROSEMIDE 100 MG/10ML VIAL IV SCH (09:30)
[2021-08-23] MEDS ORDERED: FUROSEMIDE INJECTION 100 MG in SODIUM CHL 0.9% 100 ML IV SCH (09:30)
[2021-08-23] MEDS ORDERED: DIGOXIN 0.125 MG TAB PO SCH (10:00)
[2021-08-23] MEDS: PANTOPRAZOLE 40 MG TAB PO SCH (10:00)
[2021-08-23] MEDS: AMIODARONE HCL 200 MG TAB PO SCH (10:00)
[2021-08-23] MEDS ORDERED: SODIUM BICARBONATE 8.4% INJ 50ML SYRINGE IV ONE (10:16)
[2021-08-23] MEDS ORDERED: ALBUTEROL SULF 2.5 MG/0.5ML(0.5%) NEB SOLN NEB ONE (10:16)
[2021-08-23] MEDS: LACTULOSE 20Gm/30ML SOLN PO SCH ×2 (10:23→22:00)
[2021-08-23] MEDS: ASPirin 81 mg TAB PO SCH (10:24)
[2021-08-23] MEDS ORDERED: MORPHINE SULFATE INJ 2 MG/ml SYRG IV PRN (13:15)
[2021-08-23] MEDS ORDERED: LORazepam 2MG/ML-1ML VIAL IV PRN (13:15)
[2021-08-23] MEDS ORDERED: FUROSEMIDE 100 MG/10ML VIAL IV ONE (13:30)
[2021-08-23] MEDS: SODIUM ZIRCONIUM CYCL 10 GM PAK PO SCH ×2 (14:00→22:00)
[2021-08-23] MEDS: cefTRIAXone 1GM/50ML D5W 50 ML IV SCH (14:17)
[2021-08-23] MEDS: ALBUMIN 25% 100 ML IV SCH ×2 (14:17→17:00)
[2021-08-24] MEDS: ALBUMIN 25% 100 ML IV SCH (01:31)
[2021-08-24] MEDS: SODIUM ZIRCONIUM CYCL 10 GM PAK PO SCH ×2 (06:00→14:00)
[2021-08-24] MEDS: ACCU-CHEK COMFORT CURVE STRIP VI SCH ×2 (06:50→11:33)
[2021-08-24] MEDS: InsuLIN REG 1unit/0.01ml Soln (100units/ml) SC SCH ×2 (06:57→11:30)
[2021-08-24] MEDS ORDERED: CALCIUM CHL 100MG/ML 1,000 MG in D5W 5% 100 ML IV ONE (09:15)
[2021-08-24] MEDS: cefTRIAXone 1GM/50ML D5W 50 ML IV SCH (09:42)
[2021-08-24] MEDS: AMIODARONE HCL 200 MG TAB PO SCH (09:45)
[2021-08-24] MEDS: ASPirin 81 mg TAB PO SCH (09:51)
[2021-08-24] MEDS: PANTOPRAZOLE 40 MG TAB PO SCH (09:51)
[2021-08-24] MEDS: LACTULOSE 20Gm/30ML SOLN PO SCH (09:51)
[2021-08-24 15:08] VITALS: BP 99/48
== END 2021-08-24 15:05 | disposition home or self-care (01) | DRG 291 ==
LOC: ER 17:22 → EDBD 17:22 → TELE 08-22 00:38
PROVIDERS: ADMIT Nurse Practitioner; ATTEND Internal Medicine
DX: I13.0 Hypertensive heart and chronic kidney disease with heart failure and stage 1 through stage 4 chronic kidney disease, or unspecified chronic kidney disease (principal); E43 Unspecified severe protein-calorie malnutrition; I50.23 Acute on chronic systolic (congestive) heart failure; R57.0 Cardiogenic shock; N17.0 Acute kidney failure with tubular necrosis; D68.69 Other thrombophilia; I42.0 Dilated cardiomyopathy; Z66 Do not resuscitate; Z20.822 Contact with and (suspected) exposure to COVID-19; D69.6 Thrombocytopenia, unspecified; E11.22 Type 2 diabetes mellitus with diabetic chronic kidney disease; Z68.24 Body mass index [BMI] 24.0-24.9, adult; E78.5 Hyperlipidemia, unspecified; E83.51 Hypocalcemia; E87.5 Hyperkalemia; I25.5 Ischemic cardiomyopathy; I48.91 Unspecified atrial fibrillation; J44.9 Chronic obstructive pulmonary disease, unspecified; K21.9 Gastro-esophageal reflux disease without esophagitis; N18.32 Chronic kidney disease, stage 3b; T45.515A Adverse effect of anticoagulants, initial encounter; Z51.5 Encounter for palliative care; Z79.01 Long term (current) use of anticoagulants; Z79.82 Long term (current) use of aspirin; Z79.899 Other long term (current) drug therapy; Z80.9 Family history of malignant neoplasm, unspecified; Z82.49 Family history of ischemic heart disease and other diseases of the circulatory system; Z83.3 Family history of diabetes mellitus; Z95.1 Presence of aortocoronary bypass graft; Z95.2 Presence of prosthetic heart valve; Z95.810 Presence of automatic (implantable) cardiac defibrillator; Z98.61 Coronary angioplasty status; K80.20 Calculus of gallbladder without cholecystitis without obstruction
CPT/HCPCS: 36415; 71045; 74176; 76705; 80048; 80053; 81001; 82962; 83605; 83690; 83880; 84484; 85007; 85025; 85027; 85610; 85730; 87040; 87086; 87088; 87186; 93005; 93306; 94640; 96361; 96365; G0378; J0696; J1815; J2405; J7060